=== PATIENT | female | born 1960 | race Caucasian/White ===

== ENCOUNTER 2021-06-27 19:34 | Emergency (ER) | payer OTHER, SELFPAY ==
[2021-06-27 19:35] VITALS: BP 125/73; PULSE 72; RESP 15; TEMP 36.1; O2SAT 98; BMI 28.3
--- NOTE | 2021-06-27 19:40 | RAD_ITS ---
STUDY: X-RAY - LEFT KNEE REASON FOR EXAM: Female, 60 years old. SAYS KNEE BENT BACKWARD, PAIN TECHNIQUE: 4 view(s) of the knee. COMPARISON: None. FINDINGS: Small oblique fracture seen in the head of the fibula with minimal displacement. Small cortical osteophytes seen at the periphery of the lateral patellar facet. Normal visualized distal femur. Normal visualized proximal tibia. Normal proximal tibiofibular articulation. Normal medial femorotibial compartment. Normal lateral femorotibial compartment. Normal patellofemoral articulation. The soft tissue structures are unremarkable. RAD/Knee 4 or More Views IMPRESSION: 1. Small oblique fracture seen in the head of the fibula with minimal displacement. Electronically Signed: Db Alvarado MD at 20:45 EDT , Service support ,
--- NOTE | 2021-06-27 20:36 | EDS_ITS ---
HPI History of Present Illness Chief Complaint: Lower Extremity Injury Informant: patient Narrative Narrative: Patient hurt her left knee. She was walking with her horse. It was pushing her a little bit. She caught her left foot on a root and fell down onto her knee. She has pain in the lateral aspect of the knee really overlying proximal fibula. She is able to bear weight. She never hit her head. No upper extremity injury. The only area of discomfort or complaint is the lateral left knee. Pressing makes a little bit worse nothing really makes it better other than rest. She is not on any anticoagulation. [facility] Medical History Anxiety Depression Home Medications bupropion HCl 100 mg PO DAILY 06/27/21 [History Last Taken Unknown] Allergy/AdvReac Type Severity Reaction Status Date / Time acetaminophen [From Vicodin] Allergy Other Verified 06/27/21 19:37 etodolac [From Lodine] Allergy Unknown Verified 06/27/21 19:37 hydrocodone [From Vicodin] Allergy Other Verified 06/27/21 19:37 Surgical History History of hysterectomy Social History Smoking Status: Never smoker ROS ROS ED Eyes Eyes: Denies blurry vision Cardiovascular Cardiovascular: Denies palpitations Gastrointestinal Gastrointestinal: Denies nausea or vomiting Musculoskeletal Musculoskeletal: Reports other Details: See history of present illness. ; Denies back pain or neck pain Integumentary Denies rash Neurologic Neurologic: Denies paresthesias or weakness Hematologic/Lymphatic Hematologic/Lymphatic: Denies easy bleeding or easy bruising EXAM Physical Exam Const Vital Signs: 06/27/21 19:35 Temperature 96.9 F L Temperature Source Temporal Pulse Rate 72 Respiratory Rate 15 Blood Pressure 125/73 H Blood Pressure Mean 90 Pulse Ox 98 Oxygen Delivery Method Room Air Positive well nourished and well developed General Appearance ED: well developed and NAD HEENT Reports moist mucous membranes Resp normal respiratory effort Extremity normal to inspection Extremity Narrative: Patient has no notable swelling. No effusion. She has reasonable range of motion. Knee is stable to inversion eversion and drawer. She does have some lateral proximal fibular tenderness but it is just mild. No crepitance. Neuro Sensorium / Orientation: alert Psych mental status grossly normal Skin Rashes: no rashes MDM MDM MDM Narrative Medical decision making narrative: I looked at the x-rays and so did radiology. There is a proximal small fibular fracture. This can be treated with ice rest Varghese wrap. If there is more swelling pain or new areas of pain or other concerns she should return. This should be followed up with x-ray to make sure it is healing. Radiography Diagnostic Testing: Radiology Impression Knee X-Ray 06/27/21 19:40 IMPRESSION: 1. Small oblique fracture seen in the head of the fibula with minimal displacement. Electronically Signed: Db Alvarado MD at 20:45 EDT , Service support , Discharge Plan Triage Chief Complaint: Lower Extremity Injury ED Provider: Tawanda Chang Dx/Rx/DC Orders Clinical Impression: Fracture of fibula, proximal Instructions: ED Fracture, Lower Extremity Prescriptions: No Action bupropion HCl 100 mg tablet sustained-release 12 hr 100 mg PO DAILY RF: 0 Primary Care Provider: Hermila Kerns Referrals: Hermila Kerns MD [Primary Care Provider] - 1-2 Weeks Disposition Disposition: Home, Self Care
== END 2021-06-27 22:36 | disposition home or self-care (01) ==
PROVIDERS: Emergency Provider Emergency Medicine; PCP Internal Medicine
DX: S82.402A Unspecified fracture of shaft of left fibula, initial encounter for closed fracture (principal); W19.XXXA Unspecified fall, initial encounter; F32.9 Major depressive disorder, single episode, unspecified; Y93.01 Activity, walking, marching and hiking; Z79.899 Other long term (current) drug therapy
CPT/HCPCS: 73564; 99282

== ENCOUNTER 2021-09-18 12:07 | Emergency (ER) | payer OTHER, SELFPAY ==
[2021-09-18 12:08] VITALS: BP 125/79; PULSE 68; RESP 18; TEMP 36.3; O2SAT 100; BMI 28.3
[2021-09-18] MEDS: Lidocaine 1% (20 ml mdv) 20 ML Vial INFILT (12:21)
--- NOTE | 2021-09-18 12:30 | EDS_ITS ---
HPI History of Present Illness Chief Complaint: Laceration Informant: patient Narrative Narrative: 61-year-old female presents to the emergency room with a left ring finger laceration. Patient was cutting food in the kitchen when she sustained a cut. Tetanus is up-to-date per her. Tetanus Immunization: 5-10 years [facility] Medical History Anxiety Depression Home Medications bupropion HCl 100 mg PO DAILY 06/27/21 [History Last Taken Unknown] Allergy/AdvReac Type Severity Reaction Status Date / Time acetaminophen [From Vicodin] Allergy Other Verified 09/18/21 12:09 etodolac [From Lodine] Allergy Unknown Verified 09/18/21 12:09 hydrocodone [From Vicodin] Allergy Other Verified 09/18/21 12:09 Surgical History History of hysterectomy Social History (Updated 09/18/21 @ 12:[address] Archie Bray DO) Smoking Status: Never smoker substance use type: does not use ROS ROS ED Constitutional Constitutional ED: Denies chills, fever(s) or weight loss Eyes Eyes: Denies change in vision or diplopia ENT ENT ED: Denies ear pain, rhinorrhea or sore throat Cardiovascular Cardiovascular: Denies chest pain, orthopnea, palpitations or racing heartbeat Respiratory/Chest Respiratory/Chest: Denies cough, dyspnea or orthopnea Gastrointestinal Gastrointestinal: Denies abdominal pain, diarrhea, nausea or vomiting Genitourinary Genitourinary ED: Denies dysuria, hematuria or urinary frequency Musculoskeletal Musculoskeletal: Denies arthralgias or myalgias Integumentary Reports other Details: See history of present illness ; Denies abscess or rash Neurologic Neurologic: Denies headache(s) or weakness Psychiatric Psychiatric: Denies anxiety, depression, suicidal ideation or suicidal thoughts Endocrine Endocrinology: Denies polydipsia, polyphagia or polyuria Allergic/Immunologic Allergic/Immunologic ED: Denies mouth swelling, tongue swelling or urticaria EXAM Physical Exam Const Vital Signs: 09/18/21 12:08 Temperature 97.3 F L Temperature Source Temporal Pulse Rate 68 Respiratory Rate 18 Blood Pressure 125/79 H Blood Pressure Mean 94 Pulse Ox 100 Oxygen Delivery Method Room Air Positive well nourished and well developed General Appearance ED: well developed HEENT Reports normocephalic, head/scalp atraumatic, TM's clear and moist mucous membranes atraumatic Tympanic Membrane ED: Yes TM's clear Eyes PERRL and EOMs intact bilaterally Neck no lymphadenopathy, supple and no JVD Resp normal respiratory effort and clear to auscultation bilaterally Cardio regular rate, regular rhythm and no murmurs Rate: regular rate GI normal to inspection, nondistended, normoactive bowel sounds and non-tender Palpation: soft Back/Spine no CVA tenderness and normal ROM Extremity full ROM General Extremety ED: Negative for edema General Extremity: Negative for edema Neuro oriented x3 and CN's II-XII intact bilaterally Sensorium / Orientation: alert Motor Exam: strength 5/5 throughout Psych mental status grossly normal Mood & Affect: Negative for depressed or tearful Skin no rashes or lesions noted Skin Narrative: There is a 1 cm linear laceration over the volar distal aspect of the left ring finger. Mild venous bleeding. It does extend into subcuta neous tissue. MDM MDM MDM Narrative Medical decision making narrative: Wound was locally anesthetized using 1% lidocaine (0.5 mL) was washed with Shur-Clens and explored. It was closed using a total of 2 simple erupted 4-0 Ethilon sutures. Dressed with bacitracin and Band-Aid. Stitches will be removed in 7 to 10 days return if worsening or concerns Discharge Plan Triage Chief Complaint: Laceration ED Provider: Archie Bray Dx/Rx/DC Orders Clinical Impression: Finger laceration Instructions: ED Laceration, Hand: All Closures Prescriptions: No Action bupropion HCl 100 mg tablet sustained-release 12 hr 100 mg PO DAILY RF: 0 Primary Care Provider: Hermila Kerns Referrals: Hermila Kerns MD [Primary Care Provider] - 7 Days for suture removal Disposition Disposition: Home, Self Care
== END 2021-09-18 12:38 | disposition home or self-care (01) ==
LOC: ED 12:30
PROVIDERS: Emergency Provider Emergency Medicine; PCP Internal Medicine
DX: S61.215A Laceration without foreign body of left ring finger without damage to nail, initial encounter (principal); W26.9XXA Contact with unspecified sharp object(s), initial encounter; Y93.G1 Activity, food preparation and clean up; Y92.9 Unspecified place or not applicable; Y99.9 Unspecified external cause status; F32.A Depression, unspecified; F41.9 Anxiety disorder, unspecified; Z79.899 Other long term (current) drug therapy
CPT/HCPCS: 12001; 99283

== ENCOUNTER 2025-01-13 09:36 | Emergency (ER) | payer MEDICARE, OTHER, SELFPAY ==
[2025-01-13] VITALS (9 sets, daily range): BP systolic 98–128; BP diastolic 61–78; PULSE 75–90; RESP 16–20; TEMP 36.1; O2SAT 95–99; BMI 29.2
--- NOTE | 2025-01-13 09:48 | ED.VIS.CHEST ---
HPI History of Present Illness Chief Complaint: Chest Pain [facility] Medical History Anxiety Depression Home Medications ?Medication ?Instructions ?Recorded ?Last Taken ?Type bupropion HCl 100 mg tablet,12 hr 100 mg PO DAILY 06/27/21 Unknown History sustained-release Allergy/AdvReac Type Severity Reaction Status Date / Time acetaminophen (From Vicodin) Allergy Other Verified 01/13/25 09:40 etodolac (From Lodine) Allergy Unknown Verified 01/13/25 09:40 hydrocodone (From Vicodin) Allergy Other Verified 01/13/25 09:40 Surgical History History of hysterectomy Social History (Updated 09/18/21 @ 12:[address] Archie Bray DO) Smoking Status: Never smoker substance use type: does not use EXAM Physical Exam Const Vital Signs: 01/13/25 09:37 01/13/25 10:03 01/13/25 10:24 Temperature 97.0 F L Temperature Source Temporal Pulse Rate 90 Respiratory Rate 16 Respiratory Effort Normal Blood Pressure 105/61 Blood Pressure Mean 75 Pulse Ox 97 95 Oxygen Delivery Method Room Air Room Air 01/13/25 10:37 01/13/25 11:00 01/13/25 12:00 Temperature Temperature Source Pulse Rate 79 78 79 Respiratory Rate 20 H 16 16 Respiratory Effort Blood Pressure 98/68 99/68 102/73 Blood Pressure Mean 78 78 82 Pulse Ox 97 96 98 Oxygen Delivery Method Room Air 01/13/25 13:00 01/13/25 14:00 01/13/25 15:00 Temperature Temperature Source Pulse Rate 78 75 87 Respiratory Rate 16 16 16 Respiratory Effort Blood Pressure 128/78 H 100/61 102/68 Blood Pressure Mean 94 74 79 Pulse Ox 98 98 98 Oxygen Delivery Method MDM MDM MDM Narrative Medical decision making narrative: HISTORY OF PRESENT ILLNESS: 64-year-old female presents with concern for chest heaviness. No she has not felt well for the last 6 days. Notes some transient chest discomfort this morning that has since resolved. Discomfort was not exertional. She further states she has had fatigue, body aches, chills. No sick contacts. No leg swelling. No bleeding diathesis noted. No vomiting or diarrhea noted but she does note upset stomach . Patient denies sudden onset of pain, no tearing sensation, no migratory symptoms, no new numbness, weakness or loss of sensation. Patient denies family history or personal history of Connective tissue disorders (Marfan's Syndrome, Brad Danlos etc) The patient denies recent surgery in the last 4 weeks or immobilization in the last 3 days, denies previous diagnosis of DVT or PE, hemoptysis, unilateral leg swelling or malignancy with treatment the last 6 months or palliative. No estrogen use noted. REVIEW OF SYSTEMS: Pertinent positives: Fever, chest heaviness Pertinent negatives: Syncope, shortness of breath PHYSICAL EXAM: Nursing triage notes reviewed, Vital signs reviewed Constitutional: please see mdm HENT: MMM Eyes: Pupils equal round and reactive to light, Extraocular muscles intact Neck: No stridor, no JVD, full neck ROM Lungs: Clear to auscultation, No wheezing or rales. No increased work of breathing, no conversational dyspnea, no accessory muscle use, no nasal flaring. No respiratory distress noted Heart: Regular rate and rhythm, No murmurs, No rubs and No gallops, 2+ distal pulses (radial, femoral, posterior tibial) in all extremities Abdomen: Soft, there is no tenderness, rigidity, rebound or guarding, no obvious peritoneal signs, no palpable pulsatile abdominal masses, no auscultated abdominal bruit : No CVAT Extremities: No edema Neuro: No new focal neurological deficits, cranial nerves II through XII intact, 5/5 strength in all present extremities. Intact sensation to light touch in all present extremities, 2+ reflexes bilateral patella tendons. Skin: No rash or lesions noted MEDICAL DECISION MAKING: Chief Complaint: As per HPI External records reviewed: Reviewed prior ED record Factors affecting care: none Social determinants of health: none History obtained from others: none Consults: Cardiology (Dr. Mcclendon) [facility] Narrative: The patient was initially hemodynamically stable, afebrile and nontoxic-appearing. Saturating 97% room air. No respiratory distress noted. Lungs are clear. No signs of significant distress. I considered the following differential diagnosis: Pneumonia, COVID, RSV, flu, ACS, arrhythmia I obtained a broad lab and imaging workup to further elucidate etiology the patient complaints. While I considered life-threatening etiologies including pulmonary embolism and aortic dissection the patient's history and physical exam not consistent with these etiologies and as such I did not pursue a D-dimer or CT scans of the chest/chest abdomen pelvis to further assess these potentiality's ALL IMAGES (IF OBTAINED) HAVE BEEN PERSONALLY REVIEWED AND INTERPRETED BY MYSELF. EKG with normal sinus rhythm rate 84, normal axis, normal intervals, no STEMI I have personally reviewed the patient's chest x-ray. Chest x-ray is unremarkable for pulmonary edema, pneumothorax, pneumonia or focal cardiopulmonary abnormality. CBC with no leukocytosis, noted mild anemia, no thrombocytopenia. BMP without evidence of significant electrolyte abnormalities, no anion gap, no acute kidney injury. Initial troponin indeterminate/negative will complete high-sensitivity troponin protocol. Clinical suspicion for ACS is low. I suspect the patient's symptoms are more likely related to a viral URI. She is chest pain-free. Has a nonischemic EKG. Has no risk factors for smoking or hypertension that make me more concerned about ACS. Discussed troponin values with the piping design specialist on-call. He noted if the change in the 4-hour troponin is less than 6 from a 2-hour troponin then the patient will be safe to be discharged. He is greater than 6 recommends admission. Delta troponin was acceptable 33-26-27. Appropriate for dc. Strict return precautions discussed. The patient and/or family, caregivers express understanding. The patient and/or family, caregivers agrees with the plan. Shared decision making: I will have a discussion with the patient and or visitors regarding risk/benefits of further testing or admission. They will be made aware of of the risk/benefits inherent in this decision they will be given the opportunity to voice understanding. Total critical care time today provided was at least 0 minutes. This excludes separately billable procedures. Critical care time (if documented) is secondary to the patient having high probability of clinically significant/life threatening deterioration in the patient's condition which required my urgent intervention. Impression: 1. Viral URI 2. Chest pain Dispo: Discharge This note was generated with [employer] dictation software. It may contain incorrect words, spelling, and punctuation that were not noted in review of the chart prior to signing. Lab Data Labs: Laboratory Results - last 24 hr 01/13/25 01/13/25 01/13/25 10:10 12:19 14:25 WBC 6.6 RBC 3.96 L Hgb 11.9 L Hct 35.0 L MCV 88.4 MCH 30.1 MCHC 34.0 RDW Std Deviation 43.1 RDW Coeff of Amanda 13.3 Plt Count 271 MPV 9.6 Immature Gran % (Auto) 0.500 Neut % (Auto) 77.0 H Lymph % (Auto) 9.7 L Mcminn % (Auto) 8.3 Eos % (Auto) 3.9 Baso % (Auto) 0.6 Absolute Neuts (auto) 5.1 Absolute Lymphs (auto) 0.64 L Nucleated RBC % 0 Sodium 137 Potassium 3.9 Chloride 103 Carbon Dioxide 22.6 Anion Gap 11 BUN 11 Creatinine 0.66 L Estim Creat Clear Calc 67.02 Est GFR (MDRD) Non-Af 97 BUN/Creatinine Ratio 16.6 Glucose 128 H Calcium 9.0 Troponin T High Sens 33 H Troponin T Hi Sens 2 Hr 26 H Troponin T Hi Sens 4Hr 27 H Radiography Diagnostic Testing: Clinical Impression(s) from Imaging Studies Chest X-Ray 01/13/25 10:05 IMPRESSION: 1. No visible acute cardiopulmonary findings 2. Additional description as above. Reading Location: [facility] Discharge Plan Triage Chief Complaint: Chest Pain ED Provider: Rakesh Parra Dx/Rx/DC Orders Instructions: ED URI, Viral, No Abx (Adult), Chest Pain [facility] Prescriptions: No Action bupropion HCl 100 mg tablet sustained-release 12 hr 100 mg PO DAILY Primary Care Provider: Hermila Kerns Referrals: Hermila Kerns MD [Primary Care Provider] - Activity Restrictions/Additional Instructions: Thank you for trusting us with your care today! Your labs images were reassuring. Specifically no sign of COVID, RSV, flu. No sign of bacterial pneumonia. I suspect you are send from a viral upper respiratory tract infection. The testing on your heart was negative for signs of damage. Please take Tylenol (2 pills, 650 mg), ibuprofen (2 pills, 400 mg) every 6 hours as needed for pain and fever control. Please return to the emergency department if your symptoms change or worsen. Please follow with your primary care physician for further outpatient evaluation and management. Specifically for repeat evaluation and possibly stress test. Print Language: Cook Islander Disposition Disposition: Home, Self Care
--- NOTE | 2025-01-13 09:57 | EKG12_ITS ---
Test Reason : Blood Pressure : */* mmHG Vent. Rate : 84 BPM Atrial Rate : 84 BPM P-R Int : 138 ms QRS Dur : 88 ms QT Int : 380 ms P-R-T Axes : 68 47 65 degrees QTcB Int : 449 ms Normal sinus rhythm Normal ECG Confirmed by GRACIA LIZ, ERMELINDA ([id number]), manager editorial KERRI PRYOR ([id number]) on 01/14/2025 8:00:24 AM Referred By: Confirmed By: EMRELINDA FAGAN MD
--- NOTE | 2025-01-13 10:05 | RAD_ITS ---
PROCEDURE: CHEST 1 VIEW (PORTABLE) (RADCXPA_P), 01/13/2025 REASON FOR EXAM: CHEST PAIN TECHNIQUE: A single portable AP view of the chest was obtained. COMPARISON: None FINDINGS: Heart: Unremarkable. Mediastinum: Unremarkable. Lungs/pleura: No focal consolidation. No sizeable pleural effusion or visible pneumothorax. Bones: Mild thoracic scoliosis. Lines and support devices: None. Other: None. RAD/Chest 1 View (Portable) IMPRESSION: 1. No visible acute cardiopulmonary findings 2. Additional description as above. Reading Location: [id number]
[2025-01-13] MEDS: Ondansetron 4 MG/2 ML Vial IV (10:12)
[2025-01-13] MEDS: 0.9% Normal Saline (1000mL) 1,000 ML 999 ML IV (10:12)
[2025-01-13 10:27] LABS: Absolute Lymphocyte Count 0.64 X10^3/uL (0.83-4.51); Absolute Neutrophil Count 5.1 X10^3/uL (2.0-7.7); Basophil# 0.04 X10^3/uL; Basophil% 0.6 % (0-1); Eosinophil# 0.26 X10^3/uL; Eosinophils% 3.9 % (0-5); Hemoglobin 11.9 g/dL (12.0-15.0); Lymphocyte # 0.64 X10^3/ul (0.83-4.51); Lymphocyte % 9.7 % (19-41); Mean Corpuscular Hgb 30.1 pg (27.0-32.0); Mean Corpuscular Volume 88.4 fL (81-99); Mean Platelet Vol. 9.6 fl (6.2-12.0); Monocyte# 0.55 X10^3/uL; Monocyte% 8.3 % (0-10); NRBC Flagged by Analyzer 0 % (0-5); Neutrophil # 5.11 X10^3/uL (2.7-7.7); Platelet Count 271 K/mm3 (150-450); RBC Distribution Width CV 13.3 % (11.6-14.6); RBC Distribution Width SD 43.1 fl (35.1-43.9); Red Blood Count 3.96 M/mm3 (4.2-5.4); White Blood Count 6.6 K/mm3 (4.4-11.0)
[2025-01-13 10:52] LABS: Anion Gap 11 (5-15); BUN 11 mg/dL (4-19); BUN/Creat Ratio 16.6 RATIO (10-20); Carbon Dioxide 22.6 mmol/L (21.0-32.0); Chloride 103 mmol/L (98-108); Creatinine, Serum 0.66 mg/dL (0.70-1.20); EST Glomerular Filtration Rate 97 (>60); Estimated Creatinine Clearance 67.02 ml/min (50-250); Glucose 128 mg/dL (70-99); Potassium 3.9 mmol/L (3.3-5.1); Sodium Level 137 mmol/L (133-145); Troponin T High Sensitivity 33 ng/L (<=14)
[2025-01-13 13:22] LABS: Troponin T High Sens 2 HR 26 ng/L (<=14)
[2025-01-13 15:01] LABS: Troponin T High Sens 4 HR 27 ng/L (<=14)
== END 2025-01-13 15:30 | disposition home or self-care (01) ==
PROVIDERS: Emergency Provider Emergency Medicine; PCP Internal Medicine; Visit Provider Emergency Medicine
DX: R07.9 Chest pain, unspecified (principal); J06.9 Acute upper respiratory infection, unspecified; Z90.710 Acquired absence of both cervix and uterus; F41.9 Anxiety disorder, unspecified; F32.A Depression, unspecified; Z79.899 Other long term (current) drug therapy
CPT/HCPCS: 71045; 80048; 84484; 85025; 87631; 93005; 96361; 96374; 99284; A4216; J2405

== ENCOUNTER 2025-03-14 09:41 | Inpatient (IN) | payer MEDICARE, OTHER, SELFPAY ==
[2025-03-14 09:42] VITALS: BP 111/60; PULSE 73; RESP 16; TEMP 36.6; O2SAT 99; BMI 29.2
--- NOTE | 2025-03-14 10:06 | ED.VIS.GI ---
HPI HPI - GI History of Present Illness Chief Complaint: Abd Pain Informant: patient and spouse/S.O. Narrative Narrative: 64-year-old female presenting to the emergency room with a chief complaint of abdominal pain. Patient states that Friday night she had some discomfort mostly right upper quadrant but also diffusely in the abdomen. It went away and started she felt pretty good. Yesterday she went to a birthday republic[employer] in the afternoon she ate some salad and peanut butter crackers for dinner between [id number] hours. She states that around 0330 hrs. in the morning she awoke with pain in her abdomen. She describes it as mostly right upper quadrant but also diffusely and cramping. She had some oatmeal this morning around 0800 hrs. Patient states she has a known gallstone which was seen on either an ultrasound or CAT scan earlier this year which she states was performed here but I do not have that in the medical record. The patient states that she has not had any vomiting or nausea. No known pancreatic issues. She notes some intermittent constipation which is normal for her but had normal bowel movement this morning. Recently she has started to avoid eating several hours before bed. [facility] Medical History Anxiety Depression Home Medications ?Medication ?Instructions ?Recorded ?Last Taken ?Type acetaminophen 500 mg capsule 1,000 mg PO Q6H PRN fever or pain 03/14/25 03/14/25 History ascorbate calcium-bioflavonoid 1 tab PO DAILY 03/14/25 Unknown History 1,000 mg-200 mg tablet (Rosalee-C with Bioflavonoids) chromium amino acid chelate 400 400 mcg PO DAILY 03/14/25 03/13/25 History mcg tablet coenzyme Q10 100 mg capsule (Co 100 mg PO DAILY 03/14/25 03/13/25 History Q-10) estradiol 0.01% (0.1 mg/gram) 1 g vaginal .COMPLEX 03/14/25 03/12/25 History vaginal cream evening primrose oil-linoleic 1 cap PO DAILY 03/14/25 03/13/25 History acid-gamolenic acid 1,000 mg capsule ([place] Oil) ginkgo biloba leaf extract 120 1 tab PO DAILY 03/14/25 03/13/25 History mg-choline bitartrate 110 mg tablet ([facility] Memory Support) krill oil 500 mg capsule 500 mg PO DAILY 03/14/25 03/13/25 History turmeric 400 mg capsule 400 mg PO DAILY 03/14/25 03/13/25 History vit A 600 mcg-vit D3 50 mcg-vit E 1 cap PO DAILY 03/14/25 Unknown History 101 mg-vit K1 1,000 mcg capsule Allergy/AdvReac Type Severity Reaction Status Date / Time acetaminophen (From Vicodin) Allergy Other Verified 03/14/25 09:41 etodolac (From Lodine) Allergy Unknown Verified 03/14/25 09:41 hydrocodone (From Vicodin) Allergy Other Verified 03/14/25 09:41 Surgical History History of hysterectomy Social History Smoking Status: Never smoker substance use type: does not use ROS ROS ED Constitutional Constitutional ED: Denies chills, fever(s) or weight loss Eyes Eyes: Denies change in vision or diplopia ENT ENT ED: Denies ear pain, rhinorrhea or sore throat Cardiovascular Cardiovascular: Denies chest pain, orthopnea, palpitations or racing heartbeat Respiratory/Chest Respiratory/Chest: Denies cough, dyspnea or orthopnea Gastrointestinal Gastrointestinal: Reports abdominal pain and constipation; Denies diarrhea, nausea or vomiting Genitourinary Genitourinary ED: Denies dysuria, hematuria or urinary frequency Musculoskeletal Musculoskeletal: Denies arthralgias or myalgias Integumentary Denies abscess or rash Neurologic Neurologic: Denies headache(s) or weakness Psychiatric Psychiatric: Denies anxiety, depression, suicidal ideation or suicidal thoughts Endocrine Endocrinology: Denies polydipsia, polyphagia or polyuria Allergic/Immunologic Allergic/Immunologic ED: Denies mouth swelling, tongue swelling or urticaria EXAM Physical Exam Const Vital Signs: 03/14/25 09:42 03/14/25 11:41 03/14/25 12:34 Temperature 97.9 F 98 F Temperature Source Oral Pulse Rate 73 80 80 Respiratory Rate 16 20 H Blood Pressure 111/60 132/78 H 132/78 H Blood Pressure Mean 77 96 96 Pulse Ox 99 96 96 Oxygen Delivery Method Room Air Positive well nourished and well developed General Appearance ED: well developed HEENT Reports normocephalic, head/scalp atraumatic and moist mucous membranes Eyes PERRL and EOMs intact bilaterally Neck no lymphadenopathy, supple and no JVD Resp normal respiratory effort and clear to auscultation bilaterally Cardio regular rate, regular rhythm and no murmurs GI GI Narrative: Mild tenderness to palpation in the lateral right upper quadrant. There is no involuntary guarding or rebound tenderness. There is normal bowel sounds. Palpation: soft Back/Spine no CVA tenderness and normal ROM Extremity normal to inspection General Extremety ED: Negative for edema General Extremity: Negative for edema Neuro oriented x3 and CN's II-XII intact bilaterally Sensorium / Orientation: alert Motor Exam: strength 5/5 throughout Psych mental status grossly normal Mood & Affect: Negative for depressed or tearful Skin no rashes or lesions noted and no wounds MDM MDM MDM Narrative Medical decision making narrative: Differential diagnosis includes but not limited to acute cholecystitis choledocholithiasis pancreatitis UTI kidney stone hepatic dysfunction renal dysfunction Basic blood work shows a white count of 2.6 hemoglobin 12.8 platelet count is 216 creatinine 0.62. Total bilirubin 0.69 direct bilirubin is 0.44 AST of 856 ALT of 547 alk phos 106 lipase of 96. Urinalysis with 5-10 squamous cells but no overt infection. CT of the pelvis was obtained read by radiology reviewed by myself. Ultrasound of the gallbladder was also obtained. Please see radiologist read for full details. Both of these results and the patient's presentation and labs were discussed with on-call surgeon Dr. Cabrera. He has come to the emergency department to evaluate the patient. Plan of care is admission to the hospital for further evaluation. History & Record Review Discussion w/independent historian: Patient and Family Additional record(s) reviewed:: Prior ED visit and Prior labs Lab Data Attestation: I reviewed the patient's lab results. Labs: Laboratory Results - last 24 hr 03/14/25 03/14/25 10:17 10:42 WBC 2.6 L RBC 4.23 Hgb 12.8 Hct 37.6 MCV 88.9 MCH 30.3 MCHC 34.0 RDW Std Deviation 44.0 H RDW Coeff of Amanda 13.6 Plt Count 216 MPV 9.5 Immature Gran % (Auto) 0.000 Neut % (Auto) 63.2 Lymph % (Auto) 24.7 [place] % (Auto) 9.5 Eos % (Auto) 1.1 Baso % (Auto) 1.5 H Absolute Neuts (auto) 1.7 L Absolute Lymphs (auto) 0.65 L Nucleated RBC % 0 Sodium 139 Potassium 4.5 Chloride 108 Carbon Dioxide 21.7 Anion Gap 9 BUN 16 Creatinine 0.62 L Estim Creat Clear Calc 67.02 Est GFR (MDRD) Non-Af 98 BUN/Creatinine Ratio 26.1 H Glucose 116 H Calcium 9.4 Total Bilirubin 0.69 Direct Bilirubin 0.44 H AST 856 H ALT 547 H Alkaline Phosphatase 106 H Total Protein 7.1 Albumin 4.3 Globulin 2.8 Lipase 96 H Urine Color Yellow Urine Clarity Clear Urine pH 7.0 Ur Specific [place] 1.010 Urine Protein 15 H Urine Glucose (UA) Normal Urine Ketones Negative Urine Occult Blood Negative Urine Nitrite Negative Urine Bilirubin Negative Urine Urobilinogen 1 H Ur Leukocyte Esterase Negative Urine RBC 0 SEEN Urine WBC 0 SEEN Ur Squamous Epith Cells 5-10 SEEN Urine Bacteria 0 SEEN Urine Mucus 0 SEEN Radiography Diagnostic Testing: Clinical Impression(s) from Imaging Studies Abdomen/Pelvis CT 03/14/25 10:35 IMPRESSION: Cholelithiasis. Mildly distended gallbladder and findings suggestive of thickened gallbladder wall. Correlation with ultrasound recommended. Sigmoid diverticulosis. Fatty infiltration of the liver. [facility] 03/14/25 11:03 IMPRESSION: 1. Cholelithiasis, mild gallbladder distention, mild gallbladder wall thickening and positive sonographic Butterfield's sign consistent with age-indeterminate cholecystitis with suspicion of acute cholecystitis. HIDA scan can be considered as warranted. 2. Nonspecific borderline biliary ductal dilatation with proximal common bile duct diameter of 0.41 cm and distal common bile duct diameter of 0.82 cm. No choledocholithiasis seen, MRCP can be considered as warranted. 3. 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 Cabrera) Discharge Plan Dx/Rx/DC Orders Clinical Impression: Abdominal pain, Cholelithiasis, Elevated liver enzymes Disposition Disposition: Acute Care Hospital [facility]
[2025-03-14 10:23] LABS: Absolute Lymphocyte Count 0.65 X10^3/uL (0.83-4.51); Absolute Neutrophil Count 1.7 X10^3/uL (2.0-7.7); Basophil# 0.04 X10^3/uL; Basophil% 1.5 % (0-1); Eosinophil# 0.03 X10^3/uL; Eosinophils% 1.1 % (0-5); Hematocrit 37.6 % (37-47); Hemoglobin 12.8 g/dL (12.0-15.0); Lymphocyte # 0.65 X10^3/ul (0.83-4.51); Lymphocyte % 24.7 % (19-41); Mean Corpuscular Hgb 30.3 pg (27.0-32.0); Mean Corpuscular Volume 88.9 fL (81-99); Mean Platelet Vol. 9.5 fl (6.2-12.0); Monocyte# 0.25 X10^3/uL; Monocyte% 9.5 % (0-10); NRBC Flagged by Analyzer 0 % (0-5); Neutrophil # 1.66 X10^3/uL (2.7-7.7); Neutrophil % 63.2 % (47-70); Platelet Count 216 K/mm3 (150-450); RBC Distribution Width CV 13.6 % (11.6-14.6); Red Blood Count 4.23 M/mm3 (4.2-5.4); White Blood Count 2.6 K/mm3 (4.4-11.0)
--- NOTE | 2025-03-14 10:35 | CT_ITS ---
PROCEDURE: ABDOMEN/PELVIS W IV CONT ONLY 03/14/2025 REASON FOR EXAM: ABDOMINAL PAIN TECHNIQUE: Abdomen and pelvis CT with intravenous contrast. Coronal and Sagittal reconstruction series were provided. PATIENT PREPARATION: Per protocol ORAL CONTRAST TYPE: None. CONTRAST: Isovue-300 VOLUME: 100 mL One or more dose reduction techniques were used (e.g., Automated exposure control, adjustment of the mA and/or kV according to patient size, use of iterative reconstruction technique. RADIATION DOSE SUMMARY: CTDlvol: 14.2 mGy DLP: 806.78 mGycm COMPARISON: None FINDINGS: Lung bases: Mild dependent atelectasis Liver: Diffuse fatty infiltration. Tiny cyst in the anterior aspect of the lateral segment of the left lobe of the liver. Gallbladder: Several calcified gallstones. Distention of the gallbladder. Minimal thickening of the gallbladder wall. Correlation with ultrasound recommended. Spleen: Normal size. Pancreas: Normal size without evidence of mass surrounding inflammation or ductal dilation. Adrenals: Unremarkable Kidneys: Normal renal sizes. No hydronephrosis. Bladder: Unremarkable Reproductive Organs: Normal uterine size and contour. Ovaries are unremarkable. Bowel: Colonic diverticulosis without diverticulitis. Appendix: Unremarkable Lymph nodes: None Vasculature: The abdominal aorta and IVC are normal. Peritoneum / Retroperitoneum: Unremarkable Bones: Mild degenerative changes of the spine. CT/Abdomen/Pelvis W IV Cont ONLY IMPRESSION: Cholelithiasis. Mildly distended gallbladder and findings suggestive of thicke cristal gallbladder wall. Correlation with ultrasound recommended. Sigmoid diverticulosis. Fatty infiltration of the liver. Reading Location: [place] [id number]
[2025-03-14 10:43] LABS: Lipase 96 U/L (13-75)
[2025-03-14 10:53] LABS: Bacteria 0 SEEN /hpf (None Seen); Mucous, Urine 0 SEEN /hpf (<or=2+); Red Blood Cells-Urine 0 SEEN /hpf (0-5); White Blood Cells 0 SEEN /hpf (0-5)
[2025-03-14 10:54] LABS: Color, Urine Yellow (Yellow); Glucose, Dipstick Normal (Normal); Ketone-Dipstick Negative (Negative); Leukocyte Esterase-Dipstick Negative /ul (Negative); Nitrite-Dipstick Negative (Negative); Occult Blood-Urine Negative /ul (Negative); Protein-Dipstick 15 mg/dl (Negative); Urine Bilirubin Dipstick Negative (Negative); Urine Clarity Clear (Clear); Urine Urobilinogen 1 mg/dl (Normal)
[2025-03-14 11:00] LABS: AST(SGOT) 856 U/L (<=31); Alanine Aminotransfer ALT/SGPT 547 U/L (<=34); Albumin, Serum 4.3 g/dL (3.4-4.8); Alkaline Phosphatase 106 U/L (35-104); Anion Gap 9 (5-15); BUN 16 mg/dL (4-19); BUN/Creat Ratio 26.1 RATIO (10-20); Bilirubin, Direct 0.44 mg/dL (0.00-0.30); Calcium,Total 9.4 mg/dL (7.6-11.0); Carbon Dioxide 21.7 mmol/L (21.0-32.0); Chloride 108 mmol/L (98-108); Creatinine, Serum 0.62 mg/dL (0.70-1.20); EST Glomerular Filtration Rate 98 (>60); Estimated Creatinine Clearance 67.02 ml/min (50-250); Globulin 2.8 g/dL (2.2-4.2); Glucose 116 mg/dL (70-99); Potassium 4.5 mmol/L (3.3-5.1); Protein, Total 7.1 g/dL (5.9-8.4); Sodium Level 139 mmol/L (133-145); Total Bilirubin 0.69 mg/dL (0.00-1.30)
--- NOTE | 2025-03-14 11:03 | US_ITS ---
PROCEDURE: ABDOMEN LIMITED 03/14/2025 Ultrasound abdomen limited with Rright upper quadrant abdominal ultrasound performed with grayscale and color flow imaging. REASON FOR EXAM: CHOLELITHIASIS PAIN CHOLELITHIASIS PAIN. Abdominal pain. Gallstones. COMPARISON: CT abdomen March 14, 2025 FINDINGS: Liver: Liver is of mildly increased echogenicity diffusely suggestive of diffuse fatty infiltration of the liver. Liver within normal limits for size measuring 16 cm. Gallbladder: Gallbladder is mildly distended with diameter of 4.0 cm. Shadowing gallstones present within the gallbladder lumen. Mild gallbladder wall thickening to a thickness of 0.38 cm. No pericholecystic fluid seen. Positive sonographic Butterfield's sign (technologist reports patient reported pain while imaging over the gallbladder.) Common bile duct: Borderline biliary ductal dilatation with superior common bile duct diameter of 0.41 cm and inferior/distal common bile duct diameter of 0.82 cm. No choledocholithiasis seen, MRCP is more sensitive for detection of choledocholithiasis.. Pancreas: Pancreas appears normal. Right kidney: Right kidney appears normal with no hydronephrosis. Other: No fluid collection US/Abdomen Limited IMPRESSION: 1. Cholelithiasis, mild gallbladder distention, mild gallbladder wall thickeni ng and positive sonographic Butterfield's sign consistent with age-indeterminate cholecystitis with suspicion of acute cholecy stitis. HIDA scan can be considered as warranted. 2. Nonspecific borderline biliary ductal dilatation with proximal common bile duct diameter of 0.41 cm and distal common bile duct diameter of 0.82 cm. No choledocholithiasis seen, MRCP can be considered as warranted. 3. Mild suspected diffuse fatty infiltration of the liver Reading Location: [facility]
[2025-03-14 11:06] LABS: Squamous Epithelial Cells - UA 5-10 SEEN /hpf (5-10)
[2025-03-14 11:41] VITALS: BP 132/78; PULSE 80; O2SAT 96
[2025-03-14 12:34] VITALS: BP 132/78; PULSE 80; RESP 20; TEMP 36.6; O2SAT 96
--- NOTE | 2025-03-14 13:00 | NM_ITS ---
PROCEDURE: HEPATOBILIARY IMAGING 03/14/2025 REASON FOR EXAM: 64-year-old female, right upper quadrant pain, cholelithiasis, gallbladder distention and wall thickening on same-day ultrasound. TECHNIQUE: Intravenous Choletec with planar imaging of the abdomen. RADIOPHARMACEUTICAL: 6 mCi Mebrofenin COMPARISON: Same-day right upper quadrant ultrasound, same day CT abdomen pelvis. FINDINGS: There is good uptake of the radiopharmaceutical by the liver. Normal gallbladder visualization with the gallbladder identified by 30 minutes. Reading Location: [id number]
--- NOTE | 2025-03-14 13:04 | PCM.HP.STD ---
HPI - General HPI Narrative ELLI GARCIA, is a 64 F who presents with abdominal pain. She reports that 3 days ago she had cramping throughout her abdomen and then it disappeared. It came back today and is more concentrated in the right upper quadrant. She denies nausea or vomiting or fevers or chills. Currently she is not feeling much pain. [facility] Medical History Anxiety Depression Home Medications ?Medication ?Instructions ?Recorded ?Last Taken ?Type acetaminophen 500 mg capsule 1,000 mg PO Q6H PRN fever or pain 03/14/25 03/14/25 History ascorbate calcium-bioflavonoid 1 tab PO DAILY 03/14/25 Unknown History 1,000 mg-200 mg tablet (Rosalee-C with Bioflavonoids) chromium amino acid chelate 400 400 mcg PO DAILY 03/14/25 03/13/25 History mcg tablet coenzyme Q10 100 mg capsule (Co 100 mg PO DAILY 03/14/25 03/13/25 History Q-10) estradiol 0.01% (0.1 mg/gram) 1 g vaginal .COMPLEX 03/14/25 03/12/25 History vaginal cream evening primrose oil-linoleic 1 cap PO DAILY 03/14/25 03/13/25 History acid-gamolenic acid 1,000 mg capsule ([place] Oil) ginkgo biloba leaf extract 120 1 tab PO DAILY 03/14/25 03/13/25 History mg-choline bitartrate 110 mg tablet ([facility]) krill oil 500 mg capsule 500 mg PO DAILY 03/14/25 03/13/25 History turmeric 400 mg capsule 400 mg PO DAILY 03/14/25 03/13/25 History vit A 600 mcg-vit D3 50 mcg-vit E 1 cap PO DAILY 03/14/25 Unknown History 101 mg-vit K1 1,000 mcg capsule Allergy/AdvReac Type Severity Reaction Status Date / Time acetaminophen (From Vicodin) Allergy Other Verified 03/14/25 09:41 etodolac (From Lodine) Allergy Unknown Verified 03/14/25 09:41 hydrocodone (From Vicodin) Allergy Other Verified 03/14/25 09:41 Surgical History History of hysterectomy Social History Smoking Status: Never smoker substance use type: does not use ROS Constitutional Constitutional: Denies anorexia, chills or fatigue Eyes Eyes: Denies blurry vision ENT HEENT: Denies abnormal hearing Cardiovascular Cardiovascular: Denies chest pain Respiratory/Chest Respiratory/Chest: Denies cough or dyspnea Gastrointestinal Gastrointestinal: Reports abdominal pain; Denies nausea, rectal bleeding or vomiting Genitourinary Genitourinary: Denies change in urinary stream Musculoskeletal Musculoskeletal: Denies abnormal gait Integumentary Integumentary: Denies jaundice Neurologic Neurologic: Denies abnormal gait Psychiatric Psychiatric: Denies anxiety or depression Endocrine Endocrinology: Denies flushing Hematologic/Lymphatic Hematologic/Lymphatic: Denies easy bleeding Vital Signs Vital Signs Vital Signs: 03/14/25 09:42 03/14/25 11:41 03/14/25 12:34 Temperature 97.9 F 98 F Temperature Source Oral Pulse Rate 73 80 80 Respiratory Rate 16 20 H Blood Pressure 111/60 132/78 H 132/78 H Blood Pressure Mean 77 96 96 Pulse Ox 99 96 96 Oxygen Delivery Method Room Air Weight Weight: 165 lb Body Mass Index (BMI) 29.2 Physical Exam Const oriented x3 and no apparent distress Resp normal respiratory effort GI soft to palpation Palpation: tender RUQ Results Lab / Micro Data 03/14/25 10:17 03/14/25 10:17 Labs: Laboratory Results - last 24 hr 03/14/25 10:17: WBC 2.6 L, RBC 4.23, Hgb 12.8, Hct 37.6, MCV 88.9, MCH 30.3, MCHC 34.0, RDW Std Deviation 44.0 H, RDW Coeff of Amanda 13.6, Plt Count 216, MPV 9.5, Immature Gran % (Auto) 0.000, Neut % (Auto) 63.2, Lymph % (Auto) 24.7, [place] % (Auto) 9.5, Eos % (Auto) 1.1, Baso % (Auto) 1.5 H, Absolute Neuts (auto) 1.7 L, Absolute Lymphs (auto) 0.65 L, Nucleated RBC % 0, Sodium 139, Potassium 4.5, Chloride 108, Carbon Dioxide 21.7, Anion Gap 9, BUN 16, Creatinine 0.62 L, Estim Creat Clear Calc 67.02, Est GFR (MDRD) Non-Af 98, BUN/Creatinine Ratio 26.1 H, Glucose 116 H, Calcium 9.4, Total Bilirubin 0.69, Direct Bilirubin 0.44 H, AST 856 H, ALT 547 H, Alkaline Phosphatase 106 H, Total Protein 7.1, Albumin 4.3, Globulin 2.8, Lipase 96 H 03/14/25 10:42: Urine Color Yellow, Urine Clarity Clear, Urine pH 7.0, Ur Specific [place] 1.010, Urine Protein 15 H, Urine Glucose (UA) Normal, Urine Ketones Negative, Urine Occult Blood Negative, Urine Nitrite Negative, Urine Bilirubin Negative, Urine Urobilinogen 1 H, Ur Leukocyte Esterase Negative, Urine RBC 0 SEEN, Urine WBC 0 SEEN, Ur Squamous Epith Cells 5-10 SEEN, Urine Bacteria 0 SEEN, Urine Mucus 0 SEEN Imaging Radiology Impression Abdomen/Pelvis CT 03/14/25 10:35 IMPRESSION: Cholelithiasis. Mildly distended gallbladder and findings suggestive of thickened gallbladder wall. Correlation with ultrasound recommended. Sigmoid diverticulosis. Fatty infiltration of the liver. Reading Location: [facility] Abdomen Ultrasound 03/14/25 11:03 IMPRESSION: 1. Cholelithiasis, mild gallbladder distention, mild gallbladder wall thickening and positive sonographic Butterfield's sign consistent with age-indeterminate cholecystitis with suspicion of acute cholecystitis. HIDA scan can be considered as warranted. 2. Nonspecific borderline biliary ductal dilatation with proximal common bile duct diameter of 0.41 cm and distal common bile duct diameter of 0.82 cm. No choledocholithiasis seen, MRCP can be considered as warranted. 3. Mild suspected diffuse fatty infiltration of the liver Reading Location: [facility] Assessment & Plan Assessment/Plan (1) Elevated liver enzymes: (2) Cholelithiasis: PLAN: Plan Patient presented with abdominal pain which was worse in the right upper quadrant. She had a CT scan which showed a large calcified gallstone and some possible thickening of the gallbladder wall. She had ultrasound which showed cholelithiasis as well as mild thickening of the gallbladder wall. Her liver enzymes are elevated will as well but only the AST and ALT. It is a very odd pattern to be elevated and suggest liver etiology. I would like to admit the patient for observation and order a HIDA to see if this is gallbladder related or if this is due to the liver. If the HIDA does not show filling of the gallbladder I will add her on tomorrow for laparoscopic cholecystectomy. Repeat labs in the morning. Tony Cabrera MD Pager: [facility] [address] [place] [address] [address] [place] [address] Office:
--- NOTE | 2025-03-14 13:38 | ED.RN ---
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
[2025-03-14 15:40] VITALS: BP 128/78; PULSE 78; RESP 18; O2SAT 98
[2025-03-14] MEDS: 0.9% Normal Saline (1000mL) 1,000 ML 100 ML IV (16:29)
[2025-03-14 16:31] VITALS: BP 119/74; PULSE 60; RESP 16; TEMP 36.7; O2SAT 100
[2025-03-14 16:44] VITALS: BMI 29.6
[2025-03-14] MEDS: Piperacil/Tazobactam 3.375 GM in 0.9% Normal Saline (50mL MB+) 50 ML IV ×2 (17:12→22:20)
[2025-03-14 20:38] VITALS: BP 118/82; PULSE 57; RESP 16; TEMP 36.6; O2SAT 98
[2025-03-15] MEDS: 0.9% Normal Saline (1000mL) 1,000 ML 100 ML IV ×3 (02:50→22:51)
[2025-03-15 02:51] VITALS: BP 105/69; PULSE 57; RESP 16; TEMP 36.4; O2SAT 96
[2025-03-15 04:48] LABS: Absolute Lymphocyte Count 0.82 X10^3/uL (0.83-4.51); Absolute Neutrophil Count 1.5 X10^3/uL (2.0-7.7); Basophil# 0.06 X10^3/uL; Basophil% 2.2 % (0-1); Eosinophil# 0.12 X10^3/uL; Eosinophils% 4.5 % (0-5); Hematocrit 36.3 % (37-47); Hemoglobin 12.2 g/dL (12.0-15.0); Lymphocyte # 0.82 X10^3/ul (0.83-4.51); Lymphocyte % 30.7 % (19-41); Mean Corp Hgb Conc 33.6 g/dL (32-36); Mean Corpuscular Volume 89.2 fL (81-99); Mean Platelet Vol. 9.4 fl (6.2-12.0); Monocyte# 0.22 X10^3/uL; Monocyte% 8.2 % (0-10); NRBC Flagged by Analyzer 0 % (0-5); Neutrophil # 1.45 X10^3/uL (2.7-7.7); Neutrophil % 54.4 % (47-70); Platelet Count 212 K/mm3 (150-450); RBC Distribution Width CV 13.9 % (11.6-14.6); RBC Distribution Width SD 45.5 fl (35.1-43.9); Red Blood Count 4.07 M/mm3 (4.2-5.4); White Blood Count 2.7 K/mm3 (4.4-11.0)
[2025-03-15 05:09] LABS: ALB/GLOB Ratio 1.6 RATIO (0.9-2.4); AST(SGOT) 462 U/L (<=31); Alanine Aminotransfer ALT/SGPT 632 U/L (<=34); Albumin, Serum 3.8 g/dL (3.4-4.8); Alkaline Phosphatase 111 U/L (35-104); Anion Gap 10 (5-15); BUN 14 mg/dL (4-19); BUN/Creat Ratio 19.5 RATIO (10-20); Calcium,Total 8.7 mg/dL (7.6-11.0); Carbon Dioxide 20.6 mmol/L (21.0-32.0); Chloride 110 mmol/L (98-108); EST Glomerular Filtration Rate 95 (>60); Estimated Creatinine Clearance 65.95 ml/min (50-250); Globulin 2.3 g/dL (2.2-4.2); Glucose 86 mg/dL (70-99); Lipase 51 U/L (13-75); Potassium 4.1 mmol/L (3.3-5.1); Protein, Total 6.1 g/dL (5.9-8.4); Sodium Level 141 mmol/L (133-145); Total Bilirubin 0.67 mg/dL (0.00-1.30)
[2025-03-15] MEDS: Piperacil/Tazobactam 3.375 GM in 0.9% Normal Saline (50mL MB+) 50 ML IV ×3 (05:29→21:47)
--- NOTE | 2025-03-15 07:29 | PCM.PN.SRG ---
Subjective Subjective Patient is not having any pain today but she reports her urine is still bright yellow Objective Data Objective Data Vital Signs: Vital Signs Temp Pulse Resp BP Pulse Ox O2 Del Method 97.6 F L 57 L 16 105/69 96 Room Air 03/15/25 02:51 03/15/25 02:51 03/15/25 02:51 03/15/25 02:51 03/15/25 02:51 03/15/25 02:51 Oxygen Delivery Method Room Air Weight: 167 lb 3.2 oz Body Mass Index (BMI) 29.6 Intake & Output: Intake and Output for Last 24 Hours 03/13/25 03/14/25 03/15/25 23:59 23:59 23:59 Intake Total 50 1050 / 1050 Balance 1050 / 1050 Lab / Micro Data 03/15/25 04:37 03/15/25 04:37 Labs: Laboratory Results - last 24 hr 03/14/25 10:17: WBC 2.6 L, RBC 4.23, Hgb 12.8, Hct 37.6, MCV 88.9, MCH 30.3, MCHC 34.0, RDW Std Deviation 44.0 H, RDW Coeff of Amanda 13.6, Plt Count 216, MPV 9.5, Immature Gran % (Auto) 0.000, Neut % (Auto) 63.2, Lymph % (Auto) 24.7, [place] % (Auto) 9.5, Eos % (Auto) 1.1, Baso % (Auto) 1.5 H, Absolute Neuts (auto) 1.7 L, Absolute Lymphs (auto) 0.65 L, Nucleated RBC % 0, Sodium 139, Potassium 4.5, Chloride 108, Carbon Dioxide 21.7, Anion Gap 9, BUN 16, Creatinine 0.62 L, Estim Creat Clear Calc 67.02, Est GFR (MDRD) Non-Af 98, BUN/Creatinine Ratio 26.1 H, Glucose 116 H, Calcium 9.4, Total Bilirubin 0.69, Direct Bilirubin 0.44 H, AST 856 H, ALT 547 H, Alkaline Phosphatase 106 H, Total Protein 7.1, Albumin 4.3, Globulin 2.8, Lipase 96 H 03/14/25 10:42: Urine Color Yellow, Urine Clarity Clear, Urine pH 7.0, Ur Specific [place] 1.010, Urine Protein 15 H, Urine Glucose (UA) Normal, Urine Ketones Negative, Urine Occult Blood Negative, Urine Nitrite Negative, Urine Bilirubin Negative, Urine Urobilinogen 1 H, Ur Leukocyte Esterase Negative, Urine RBC 0 SEEN, Urine WBC 0 SEEN, Ur Squamous Epith Cells 5-10 SEEN, Urine Bacteria 0 SEEN, Urine Mucus 0 SEEN 03/15/25 04:37: WBC 2.7 L, RBC 4.07 L, Hgb 12.2, Hct 36.3 L, MCV 89.2, MCH 30.0, MCHC 33.6, RDW Std Deviation 45.5 H, RDW Coeff of Amanda 13.9, Plt Count 212, MPV 9.4, Immature Gran % (Auto) 0.000, Neut % (Auto) 54.4, Lymph % (Auto) 30.7, [place] % (Auto) 8.2, Eos % (Auto) 4.5, Baso % (Auto) 2.2 H, Absolute Neuts (auto) 1.5 L, Absolute Lymphs (auto) 0.82 L, Nucleated RBC % 0, Sodium 141, Potassium 4.1, Chloride 110 H, Carbon Dioxide 20.6 L, Anion Gap 10, BUN 14, Creatinine 0.70, Estim Creat Clear Calc 65.95, Est GFR (MDRD) Non-Af 95, BUN/Creatinine Ratio 19.5, Glucose 86, Calcium 8.7, Total Bilirubin 0.67, AST 462 H, ALT 632 H, Alkaline Phosphatase 111 H, Total Protein 6.1, Albumin 3.8, Globulin 2.3, Albumin/Globulin Ratio 1.6, Lipase 51 Radiography Diagnostic Testing: Radiology Impression Abdomen/Pelvis CT 03/14/25 10:35 IMPRESSION: Cholelithiasis. Mildly distended gallbladder and findings suggestive of thickened gallbladder wall. Correlation with ultrasound recommended. Sigmoid diverticulosis. Fatty infiltration of the liver. Reading Location: [facility] Abdomen Ultrasound 03/14/25 11:03 IMPRESSION: 1. Cholelithiasis, mild gallbladder distention, mild gallbladder wall thickening and positive sonographic Butterfield's sign consistent with age-indeterminate cholecystitis with suspicion of acute cholecystitis. HIDA scan can be considered as warranted. 2. Nonspecific borderline biliary ductal dilatation with proximal common bile duct diameter of 0.41 cm and distal common bile duct diameter of 0.82 cm. No choledocholithiasis seen, MRCP can be considered as warranted. 3. Mild suspected diffuse fatty infiltration of the liver Reading Location: [facility] Physical Exam Const oriented x3 and no apparent distress Resp normal respiratory effort GI normal to inspection, nondistended, normoactive bowel sounds Assessment & Plan Assessment/Plan (1) Elevated liver enzymes: PLAN: The patient had elevated liver enzymes yesterday. They are continued to be elevated today. Patient had a HIDA yesterday which showed normal filling of the gallbladder. I believe this is something with liver etiology that is affecting the gallbladder. Currently she is having no abdominal pain. I will resume a diet to see if this causes any pain. I will also consult GI for the elevated liver enzymes. Tony Cabrera MD Pager: [facility] [address] [place] [address], [address] [place] [address] Office:
[2025-03-15 08:19] VITALS: BP 104/63; PULSE 58; RESP 16; TEMP 36.7; O2SAT 97
--- NOTE | 2025-03-15 09:20 | PN_ITS ---
Progress Note The radiologist called me and reported that the HIDA scan was actually positive and there was no visualization of the gallbladder. I had already fed her breakfast so I will plan on laparoscopic cholecystectomy tomorrow. I discussed this with her in detail. I discussed the procedure in detail with the patient. I discussed the risks, benefits, and alternatives of the procedure. I discussed the risks including but not limited to bleeding, infection, injury to surrounding organs such as the liver, bile duct, bowels. I did discuss the possibility of having to convert to an open procedure as well as the possibility that if any injuries occurred this may necessitate further surgery at a tertiary care center. Tony Cabrera MD Pager: [facility] [address] [place] [address] [address] [place] [address] Office:
[2025-03-15 09:38] LABS: CRP 3.24 mg/L (0.0-3.0)
[2025-03-15 09:40] LABS: Erythrocyte Sedimentation Rate 6 mm/hr (0-30)
[2025-03-15 13:52] VITALS: BP 111/70; PULSE 59; RESP 16; TEMP 36.4; O2SAT 99
--- NOTE | 2025-03-15 14:10 | CHAPLAIN ---
Type of Pastoral Visit _x__ Initial Visit ___ Follow-up Visit ___ On-call Visit ___ General Patient Visit ___ Spiritual Assessment ___ Family Conference ___ Bereavement ___ Rapid Response ___ Code Blue ___ Other (describe below) Pastoral Care Referral From _x__ Patient ___ Family ___ Nurse ___ Physician ___ Auto Research Engineer ___ Covered Button Maker ___ Other (describe below) Sacrament/Intervention _x__ Active listening ___ Anointing ___ Uatsdin ___ Bereavement ___ Communion ___ Bailey exploration ___ _x__ Life review _x__ Prayer ___ Reconciliation ___ Sacrament of Sick _x__ Supportive presence ___ Wedding ___ Other (describe below) Pastoral Comments patient admits some frustration as surgery is postponed until tomorrow; [place] and [place] things to do but will wait it out for better health; pt has family support and is connected to a local tenriism; pt welcomes someone to talk with and for prayer to be given
--- NOTE | 2025-03-15 18:19 | CON.PCM.GI_ITS ---
HPI Consult Data Date of Consult: 03/15/25 HPI Narrative Reason for Consultation: Abnormal LFTs HPI Narrative: ELLI GARCIA, is a 64-year-old female presenting to the emergency room with a chief complaint of abdominal pain. She admits to right upper quadrant pain in the setting of known stones in her gallbladder. Yesterday she went to a birthday democrat in the afternoon she ate some salad and peanut butter crackers for dinner between 8869-4576 hours. She states that around 0330 hrs. in the morning she awoke with pain in her abdomen. She was afebrile but hypertensive and tachycardic in the ED. Laboratory analysis: 03/15/25 04:37: WBC 2.7 L, RBC 4.07 L, Hgb 12.2, Hct 36.3 L, MCV 89.2, MCH 30.0, MCHC 33.6, RDW Std Deviation 45.5 H, RDW Coeff of Amanda 13.9, Plt Count 212, MPV 9.4, Immature Gran % (Auto) 0.000, Neut % (Auto) 54.4, Lymph % (Auto) 30.7, [place] % (Auto) 8.2, Eos % (Auto) 4.5, Baso % (Auto) 2.2 H, Absolute Neuts (auto) 1.5 L , Absolute Lymphs (auto) 0.82 L, Nucleated RBC % 0, ESR 6, Sodium 141, Potassium 4.1, Chloride 110 H, Carbon Dioxide 20.6 L, Anion Gap 10, BUN 14, Creatinine 0.70, Estim Creat Clear Calc 65.95, Est GFR (MDRD) Non-Af 95, BUN/Creatinine Ratio 19.5, Glucose 86, Calcium 8.7, Total Bilirubin 0.67, AST 462 H, ALT 632 H, Alkaline Phosphatase 111 H, C-React Prot Ext Range 3.24 H, Total Protein 6.1, Albumin 3.8, Globulin 2.3, Albumin/Globulin Ratio 1.6, Lipase 51 CT/Abdomen/Pelvis W IV Cont ONLY IMPRESSION: Cholelithiasis. Mildly distended gallbladder and findings suggestive of thickened gallbladder wall. Correlation with ultrasound recommended. Sigmoid diverticulosis. Fatty infiltration of the liver. US/Abdomen Limited IMPRESSION: 1. Cholelithiasis, mild gallbladder distention, mild gallbladder wall thickening and positive sonographic Butterfield's sign consistent with age-indeterminate cholecystitis with suspicion of acute cholecystitis. HIDA scan can be considered as warranted. 2. Nonspecific borderline biliary ductal dilatation with proximal common bile duct diameter of 0.41 cm and distal common bile duct diameter of 0.82 cm. No choledocholithiasis seen, MRCP can be considered as warranted. 3. Mild suspected diffuse fatty infiltration of the liver HIDA scan : the study was carried out for 120 minutes. There is nonvisualization of the gallbladder. Radiopharmaceutical is seen within the distal stomach and duodenum. [facility] Medical History Anxiety Depression Home Medications ?Medication ?Instructions ?Recorded ?Last Taken ?Type acetaminophen 500 mg capsule 1,000 mg PO Q6H PRN fever or pain 03/14/25 03/14/25 History ascorbate calcium-bioflavonoid 1 tab PO DAILY 03/14/25 03/13/25 20:00 History 1,000 mg-200 mg tablet (Rosalee-C 1 TAB with Bioflavonoids) chromium amino acid chelate 400 400 mcg PO DAILY 03/1403/13/25 08:00 History mcg tablet 400 mcg coenzyme Q10 100 mg capsule (Co 100 mg PO DAILY 03/13/25 20:00 History Q-10) 100 mg estradiol 0.01% (0.1 mg/gram) 1 g vaginal .COMPLEX 03/12/25 20:00 History vaginal cream 1 g evening primrose oil-linoleic 1 cap PO DAILY 03/14/25 03/13/25 History acid-gamolenic acid 1,000 mg capsule ([place] Oil) ginkgo biloba leaf extract 120 1 tab PO DAILY 03/14/25 03/13/25 History mg-choline bitartrate 110 mg tablet ([facility] Memory Support) krill oil 500 mg capsule 500 mg PO DAILY 03/14/25 History turmeric 400 mg capsule 400 mg PO DAILY 03/14/25 History vit A 600 mcg-vit D3 50 mcg-vit E 1 cap PO DAILY 02/24 07/21 Unknown History 101 mg-vit K1 1,000 mcg capsule Allergy/AdvReac Type Severity Reaction Status Date / Time acetaminophen (From Vicodin) Allergy Other Verified 05/19/25 09:41 etodolac (From Lodine) Allergy Unknown Verified 03/14/25 09:41 hydrocodone (From Vicodin) Allergy Other Verified 03/14/25 09:41 Surgical History History of hysterectomy Social History Smoking Status: Never smoker substance use type: does not use ROS Constitutional Constitutional: Denies fatigue, fever(s), poor appetite, weight gain or weight loss Gastrointestinal Gastrointestinal: Denies belching, bloating, change in bowel habits, change in stool character, chewing difficulty, coffee ground emesis, constipation, cramping, diarrhea, dyspepsia, dysphagia, early satiety, excessive flatus, fecal incontinence, heartburn, hematemesis, hematochezia, hemorrhoids, loose stools, melena, nausea, odynophagia, rectal bleeding, tenesmus, vomiting or weight changes Physical Exam Const alert, oriented x3, no apparent distress and healthy appearing General Appearance: cooperative GI normal to inspection, nondistended, normoactive bowel sounds, soft to palpation, non-tender and non-distended Percussion: normal to percussion Rectal Exam: deferred Lab / Micro Data 03/15/25 04:37 03/15/25 04:37 Labs: Laboratory Results - last 24 hr 03/15/25 04:37: WBC 2.7 L, RBC 4.07 L, Hgb 12.2, Hct 36.3 L, MCV 89.2, MCH 30.0, MCHC 33.6, RDW Std Deviation 45.5 H, RDW Coeff of Amanda 13.9, Plt Count 212, MPV 9.4, Immature Gran % (Auto) 0.000, Neut % (Auto) 54.4, Lymph % (Auto) 30.7, [place] % (Auto) 8.2, Eos % (Auto) 4.5, Baso % (Auto) 2.2 H, Absolute Neuts (auto) 1.5 L , Absolute Lymphs (auto) 0.82 L, Nucleated RBC % 0, ESR 6, Sodium 141, Potassium 4.1, Chloride 110 H, Carbon Dioxide 20.6 L, Anion Gap 10, BUN 14, Creatinine 0.70, Estim Creat Clear Calc 65.95, Est GFR (MDRD) Non-Af 95, BUN/Creatinine Ratio 19.5, Glucose 86, Calcium 8.7, Total Bilirubin 0.67, AST 462 H, ALT 632 H, Alkaline Phosphatase 111 H, C-React Prot Ext Range 3.24 H, Total Protein 6.1, Albumin 3.8, Globulin 2.3, Albumin/Globulin Ratio 1.6, Lipase 51 Assessment & Plan Assessment/Plan (1) Elevated liver enzymes: (2) Cholelithiasis: (3) Abdominal pain: PLAN: 64-year-old who comes in with right upper quadrant pain in the setting of known cholelithiasis and discovered to have increased LFTs. Differential diagnosis does include local inflammation secondary to gallbladder adjacent to the liver without any obstructive physiology in the hepatobiliary system. Micro choledocholithiasis is also differential diagnosis. She does not have any history consistent with any autoimmune hepatitis, primary sclerosing cholangitis, probable cirrhosis or IgG associated liver disease. I also do not suspect that this is a viral hepatitis. Patient will undergo cholecystectomy tomorrow with intraoperative cholangiogram. I will continue to follow. Thank you for allow me to be involved in the care of this patient. Charges/Coding Visit Charges Inpatient E&M: 29436 Init Hosp L3
[2025-03-15 20:00] VITALS: BP 102/69; PULSE 63; RESP 15; TEMP 36.7; O2SAT 96
[2025-03-16] VITALS (15 sets, daily range): BP systolic 108–137; BP diastolic 58–76; PULSE 51–74; RESP 15–18; TEMP 36.2–36.9; O2SAT 94–97; BMI 29.6
[2025-03-16 04:34] LABS: Absolute Lymphocyte Count 1.18 X10^3/uL (0.83-4.51); Absolute Neutrophil Count 1.7 X10^3/uL (2.0-7.7); Basophil# 0.06 X10^3/uL; Basophil% 1.8 % (0-1); Eosinophil# 0.13 X10^3/uL; Eosinophils% 3.9 % (0-5); Hematocrit 35.7 % (37-47); Hemoglobin 11.9 g/dL (12.0-15.0); Lymphocyte # 1.18 X10^3/ul (0.83-4.51); Lymphocyte % 35.2 % (19-41); Mean Corp Hgb Conc 33.3 g/dL (32-36); Mean Corpuscular Hgb 30.1 pg (27.0-32.0); Mean Corpuscular Volume 90.4 fL (81-99); Mean Platelet Vol. 9.8 fl (6.2-12.0); Monocyte# 0.32 X10^3/uL; Monocyte% 9.6 % (0-10); NRBC Flagged by Analyzer 0 % (0-5); Neutrophil # 1.66 X10^3/uL (2.7-7.7); Neutrophil % 49.5 % (47-70); Platelet Count 216 K/mm3 (150-450); RBC Distribution Width SD 46.5 fl (35.1-43.9); Red Blood Count 3.95 M/mm3 (4.2-5.4); White Blood Count 3.4 K/mm3 (4.4-11.0)
[2025-03-16 05:07] LABS: HEPATITIS B SURFACE AG Negative (Negative); Hep C Antibodies Non Reactive (Non Reactive); Hepatitis A IgM Antibody Negative (Negative); Hepatitis B Core AB IgM Negative (Negative)
[2025-03-16 06:20] LABS: ALB/GLOB Ratio 1.5 RATIO (0.9-2.4); AST(SGOT) 185 U/L (<=31); Alanine Aminotransfer ALT/SGPT 447 U/L (<=34); Albumin, Serum 3.7 g/dL (3.4-4.8); Alkaline Phosphatase 99 U/L (35-104); Anion Gap 9 (5-15); BUN 9 mg/dL (4-19); BUN/Creat Ratio 15.4 RATIO (10-20); Calcium,Total 8.7 mg/dL (7.6-11.0); Chloride 112 mmol/L (98-108); Creatinine, Serum 0.62 mg/dL (0.70-1.20); EST Glomerular Filtration Rate 98 (>60); Estimated Creatinine Clearance 65.95 ml/min (50-250); Globulin 2.4 g/dL (2.2-4.2); Glucose 91 mg/dL (70-99); Potassium 3.9 mmol/L (3.3-5.1); Protein, Total 6.1 g/dL (5.9-8.4); Sodium Level 142 mmol/L (133-145); Total Bilirubin 0.34 mg/dL (0.00-1.30)
[2025-03-16] MEDS: Piperacil/Tazobactam 3.375 GM in 0.9% Normal Saline (50mL MB+) 50 ML IV ×3 (06:38→22:59)
--- NOTE | 2025-03-16 07:59 | PN.SURG_ITS ---
Subjective Subjective Patient is comfortable this morning Objective Data Objective Data Vital Signs: Vital Signs Temp Pulse Resp BP Pulse Ox O2 Del Method 98.1 F 56 L 15 113/72 97 Room Air 03/16/25 04:00 03/16/25 04:00 03/16/25 04:00 03/16/25 04:00 03/16/25 04:00 03/16/25 04:01 Oxygen Delivery Method Room Air Weight: 167 lb 3.2 oz Body Mass Index (BMI) 29.6 Intake & Output: Intake and Output for Last 24 Hours 03/14/25 03/15/25 03/16/25 23:59 23:59 23:59 Intake Total 50 / 50 2248.33 / 2248.33 50 / 50 Balance 50 / 50 2248.33 / 2248.33 50 / 50 Lab / Micro Data 03/16/25 03:57 03/16/25 03:57 Labs: Laboratory Results - last 24 hr 03/15/25 04:37: ESR 6, C-React Prot Ext Range 3.24 H 03/15/25 09:12: Hepatitis A IgM Ab Negative, Hep Bs Antigen Negative, Hep B Core IgM Ab Negative, Hepatitis C Ab (EIA) Non Reactive, Hep C Ab Comment Comment 03/16/25 03:57: WBC 3.4 L, RBC 3.95 L, Hgb 11.9 L, Hct 35.7 L, MCV 90.4, MCH 30.1, MCHC 33.3, RDW Std Deviation 46.5 H, RDW Coeff of Amanda 14.0, Plt Count 216, MPV 9.8, Immature Gran % (Auto) 0.000, Neut % (Auto) 49.5, Lymph % (Auto) 35.2, [place] % (Auto) 9.6, Eos % (Auto) 3.9, Baso % (Auto) 1.8 H, Absolute Neuts (auto) 1.7 L, Absolute Lymphs (auto) 1.18, Nucleated RBC % 0, Sodium 142, Potassium 3.9, Chloride 112 H, Carbon Dioxide 21.0, Anion Gap 9, BUN 9, Creatinine 0.62 L, Estim Creat Clear Calc 65.95, Est GFR (MDRD) Non-Af 98, BUN/Creatinine Ratio 15.4, Glucose 91, Calcium 8.7, Total Bilirubin 0.34, AST 185 H, ALT 447 H, Alkaline Phosphatase 99, Total Protein 6.1, Albumin 3.7, Globulin 2.4, Albumin/Globulin Ratio 1.5 Physical Exam Const oriented x3 and no apparent distress Resp normal respiratory effort GI normal to inspection, nondistended, normoactive bowel sounds Assessment & Plan Assessment/Plan (1) Elevated liver enzymes: (2) Cholelithiasis: PLAN: Plan The patient had a HIDA scan which showed no filling of the gallbladder. Plan for laparoscopic cholecystectomy today. I discussed this with her again in detail and answered all of her questions. She is on scheduled Zosyn. Tony Cabrera MD Pager: [facility] [address] [place] [address], [address] [place] [address] Office:
[2025-03-16] MEDS: 0.9% Normal Saline (1000mL) 1,000 ML 100 ML IV ×2 (08:40→13:49)
--- NOTE | 2025-03-16 09:35 | CASEMGMT ---
JOVITA RAINEY Assessment: Face to Face with pt for initial transition planning/care coordination assessment. JOVITA RAINEY introduced self and role at [facility], pt voices understanding and consents to assessment. Pt is A&O x4 and answers all questions appropriately at this time. Pt sitting up in bed in no distress with at bedside. Care providers, pharmacy, and demographics verified/updated. Admitting Dx: RUQ pain Strata Score: 1 PCP:Saumya Specialists: Camacho, neuro; uro in [place] [facility]: yes LNOK: Janey Mcintosh, ; Jim Mcintosh, son Living Arrangements: Pt lives with in a two story home with 4 steps to enter. Pt reports she is I in ADL/IADLs and denies concerns at home. Transportation: Pt drives self and denies concerns with transportation. DME:walker, pt does not use AD HHC/SNF: Denies hx of Pt states no concerns with going home at time of dc. Pt to have OR today. Pt states no further concerns/needs. CM to follow. Advised pt to ask CM if any further questions/concerns/needs arise, voices understanding. Pt Goal: Home Plan: Home [place] HUSSEIN CM
--- NOTE | 2025-03-16 10:19 | PCM.PRE.AN2 ---
ASA Classification* ASA Classification ASA Classification: 2 Assessment & Plan Anesthesia* Anesthesia Assessment Anesthesia Assessment: Discussed sedation and/or anesthesia options, risks, benefits, and alternatives with patient/parents/legal guardian/POA. Questions invited. The patient/parents/legal guardian/POA seems to understand and agrees to proceed with anesthesia plan. Reviewed the physical assessment, medical history, allergy history and patient home medications list prior to surgery/procedure/anesthetic and documented any changes. Performed airway and anesthesia risk assessments. Anesthesia Type Anesthesia Type: General Anesthesia Focused Assessment* Temperature: 97.8 F Pulse Rate: 57 Blood Pressure: 114/65 Respiratory Rate: 18 Pulse Ox: 97 Airway Assessment Mouth opens: >3 cm Mallampati Score: II Focused Labs Anesthesia Preop lab: CBC WBC 3.4 K/mm3 (4.4-11.0) L 03/16/25 03:57 03/16/25 RBC 3.95 M/mm3 (4.2-5.4) L 03/16/25 03:57 03/16/25 Hgb 11.9 g/dL (12.0-15.0) L 03/16/25 03:57 03/16/25 Hct 35.7 % (37-47) L 03/16/25 03:57 03/16/25 Plt Count 216 K/mm3 (150-450) 03/16/25 03:57 03/16/25 CHEMISTRY Potassium 3.9 mmol/L (3.3-5.1) 03/16/25 03:57 03/16/25 Sodium 142 mmol/L (133-145) 03/16/25 03:57 03/16/25 BUN 9 mg/dL (4-19) 03/16/25 03:57 03/16/25 Creatinine 0.62 mg/dL (0.70-1.20) L 03/16/25 03:57 03/16/25 Glucose 91 mg/dL (70-99) 03/16/25 03:57 03/16/25 COAG Pre-Assessment Diagnosis/Proposed Procedure Planned Operative Procedure(s): Laparoscopic cholecystectomy. 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 When Was Last Pacemaker Check QUESTION #4 FULL TEXT: You/Your Family Experience fever (hyperthermia) with Anesthesia Last Oral Intake Last Oral intake: Last Oral Intake NPO since 00:00 03/16/25 08:29 Meds taken in AM with sips of water? Meds patient instructed to take am of surgery PONV PONV - plaster mechanic: PONV - plaster mechanic Female HX of Motion Sickness HX of N/V After Surgery Non-Smoker Duration of Surgery greater than 60 minutes Number of Risk Factors PONV Score Height & Weight Height & Weight: Anesthesia: Height & Weight Height 5 ft 2.99 in 03/16/25 08:29 Weight: 75.841 kg 03/16/25 08:29 Body Mass Index (BMI) 29.6 03/16/25 08:29 Respiratory Assessment Respiratory Assessment - plaster mechanic: Respiratory Tract Infection Hx - plaster mechanic Hx Respiratory Tract Infection No 03/16/25 08:37 STOP Sleep Apnea STOP Sleep Apnea - plaster mechanic: STOP Sleep Apnea - plaster mechanic Hx Hypertension No 03/14/25 16:44 Hx Sleep Apnea No 03/14/25 16:44 CPAP BIPAP Do you snore loudly (louder No 03/14/25 16:44 than talking or can be heard Do you often feel tired/ No 03/14/25 16:44 fatigued/ sleepy during daytime? Has anyone observed you stop No 03/14/25 16:44 breathing during sleep? STOP Results Negative 03/14/25 16:44 QUESTION #5 FULL TEXT : Do you snore loudly (louder than talking or can be heard through closed doors)? 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 Specify any problems Hx of Preganancy in last 3 No 03/14/25 16:44 Months Nurse Filling Out Transfusion JDIAL 03/14/25 16:44 & Questions: Date: 03/14/25 03/14/25 16:44 Time: 16:47 03/14/25 16:44 Patient unable to answer at this time (ie. confused, unrespo /Reproduction History /Reproductive History - plaster mechanic: /Reproductive Hx- plaster mechanic Hx Now No 03/16/25 08:37 Gestational Age (in weeks): EDC: Hx Hx Para Hx Section SAB No 03/16/25 08:37 Active Medications Active Medications: Current Medications Generic Name Dose Route Start Last Admin Trade Name Freq PRN Reason Stop Dose Admin Sodium Chloride 1,000 mls @ 100 mls/hr 03/14/25 13:00 03/16/25 08:40 IV 100 mls/hr .Q10H MARKOS Administration Piperacillin Sod/Tazobactam 50 mls @ 12.5 mls/hr 03/14/25 22:00 03/16/25 06:38 Sod 3.375 gm/ Sodium Chloride IV 12.5 mls/hr Q8 MARKOS Administration Morphine Sulfate 2 - 4 mg 03/14/25 13:00 Morphine 2 Mg/Ml Syringe IV Q2H PRN PRN Pain Score 4-10 Sodium Chloride 10 - 40 ml 03/14/25 13:00 0.9% Saline Lock 10 Ml Syringe IV UD PRN SALINE FLUSH Sodium Chloride 10 - 40 ml 03/14/25 13:00 0.9% Saline Lock 10 Ml Syringe IV UD PRN SALINE FLUSH Sodium Chloride 10 - 40 ml 03/14/25 17:00 0.9% Saline Lock 10 Ml Syringe IV UD PRN SALINE FLUSH PFSH Medical History Anxiety Depression Home Medications ?Medication ?Instructions ?Recorded ?Last Taken ?Type acetaminophen 500 mg capsule 1,000 mg PO Q6H PRN fever or pain 03/14/25 03/14/25 History ascorbate calcium-bioflavonoid 1 tab PO DAILY 03/14/25 03/13/25 20:00 History 1,000 mg-200 mg tablet (Rosalee-C 1 TAB with Bioflavonoids) chromium amino acid chelate 400 400 mcg PO DAILY 03/14/25 03/13/25 08:00 History mcg tablet 400 mcg coenzyme Q10 100 mg capsule (Co 100 mg PO DAILY 03/14/25 03/13/25 20:00 History Q-10) 100 mg estradiol 0.01% (0.1 mg/gram) 1 g vaginal .COMPLEX 03/14/25 03/12/25 20:00 History vaginal cream 1 g evening primrose oil-linoleic 1 cap PO DAILY 03/14/25 03/13/25 History acid-gamolenic acid 1,000 mg capsule ([place] Oil) ginkgo biloba leaf extract 120 1 tab PO DAILY 03/14/25 03/13/25 History mg-choline bitartrate 110 mg tablet ([facility] Memory Support) krill oil 500 mg capsule 500 mg PO DAILY 03/14/25 03/13/25 History turmeric 400 mg capsule 400 mg PO DAILY 03/14/25 03/13/25 History vit A 600 mcg-vit D3 50 mcg-vit E 1 cap PO DAILY 03/14/25 Unknown History 101 mg-vit K1 1,000 mcg capsule Allergy/AdvReac Type Severity Reaction Status Date / Time acetaminophen (From Vicodin) Allergy Other Verified 03/14/25 09:41 etodolac (From Lodine) Allergy Unknown Verified 03/14/25 09:41 hydrocodone (From Vicodin) Allergy Other Verified 03/14/25 09:41 Surgical History History of hysterectomy Social History Smoking Status: Never smoker substance use type: does not use Review of Systems (Anesthesia) ROS Narrative System reviewed and no additional complaints, except as documented.
--- NOTE | 2025-03-16 11:08 | RAD_ITS ---
PROCEDURE: CHOLANGIOGRAM/ O R,INITIAL 03/16/2025 REASON FOR EXAM: LAP JACQUELINE W/ IOC TECHNIQUE: Intraoperative fluoroscopic images provided for laparoscopic cholecystectomy and cholangiogram. 14.4 seconds of fluoroscopy. 6.55 mGy. COMPARISON: None FINDINGS: Intraoperative cholangiogram was performed by the surgeon. Imaging was provided. The intrahepatic biliary ducts are unremarkable. The common bile duct is not dilated. No intraluminal filling defect is seen. There is free flow of contrast into the duodenum. RAD/Cholangiogram/ O R,Initial IMPRESSION: Unremarkable intraoperative cholangiogram. Reading Location: [facility]
--- NOTE | 2025-03-16 11:10 | GALL_PTH ---
PATIENT: ELLI GARCIA LOC: MS3 U#:[id number] AGE/SX: 64/F ROOM: [facility] [place]03/15/[address]: Dr. Tony Cabrera MD : 1960 BED: 1 DIS: 03/17/2025 SPEC #: [id number] RECD: 03/16/25 11:59 STATUS: CAPRI ALLISON #: [id number] MOHINI: 03/16/25 11:[address]: Tony Cabrera DEPT: SURGICAL PATHOLOGY RECD BY: Blake Montoya ENTERED: 03/16/25 13:15 SP TYPE: NASIR TURNER DR: MD Dr. Mike Rivera DO Tissues: A - Gallbladder, NOS Procedures: Surgery Specimen Level III HEADER OPERATION: Laparoscopic, cholecystectomy with cholangiograms PRE-OP DIAGNOSIS: Elevated liver enzymes, cholelithiasis TISSUE SUBMITTED: A- Gallbladder MICROSCOPIC DIAGNOSIS A. Gallbladder, cholecystectomy: * Chronic cholecystitis, focal intestinal metaplasia. * Cholelithiasis. MICROSCOPIC DESCRIPTION Slides are reviewed. GROSS DESCRIPTION A. Received in formalin in a container labeled with the patient's name, date of , and gallbladder is an intact 11.5 x 3.5 x 3.3 cm cholecystectomy specimen. A clamped cystic duct margin is identified measuring 0.3 cm in length by 0.2 cm in diameter (inked black). The serosa is moore-pink delicate adhesions. The specimen is opened to reveal a moderate amount of thick green bile admixed with multiple yellow stone fragments. There is a single large, firm, and bosselated stone within the fundus measuring 3.5 x 2.6 x 2.5 cm. The mucosa is red-caro and nodular. A scant amount of typical velvety mucosa is identified towards the cystic duct. The wall thickness ranges from 0.1 to 0.3 cm. Supervisor Body Assembly sections:A1. Cystic duct margin, en face with full-thickness sectionsA2. Full-thickness sections [facility] 03-16-2025 CPT:56180
[2025-03-16] MEDS: Bupiv/Epi 0.25% 30 ML Vial (11:30)
--- NOTE | 2025-03-16 11:40 | PCM.OPRPT ---
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 Entry Level Software Engineer: Rudy Acosta Tasks completed by first coat operator: Opening & closing and Retracting Type of Anesthesia: General/Regional RN Documented Start/Stop Times: Operation Date: 03/16/25 11:10 Case Time Into Pre-Op 03/16/25 10:15 Anesthesia Start 03/16/25 10:36 Into Room 03/16/25 10:36 Procedure Start 03/16/25 10:56 Procedure Start Time: 10:56 Procedure Stop Time: 11:45 Select all DRAINS/GRAFTS/IMPLANTS that apply: None Estimated Blood Loss: 10 Specimen collected: Yes Description of specimen(s) removed: Gallbladder Description of surgery: After obtaining informed consent patient was brought back to the operating room. General anesthesia was induced. The abdomen was prepped and draped in usual sterile fashion. A small midline incision was made superior to the umbilicus and deepened to the level of fascia. The fascia was elevated and incised. Next the peritoneum was elevated and incised in the same fashion. Finger sweep was performed and the Rosales trocar was placed into the abdomen. The balloon was inflated. The abdomen was inflated to 15 mmHg. Next a camera was introduced into the abdomen and the abdomen was inspected. Next under direct visualization three 5-mm ports were placed one subxiphoid and 2 subcostal. Next the gallbladder was elevated and retracted toward the right shoulder. The peritoneum was stripped from the gallbladder. The infundibulum was located and retracted laterally. Next the triangle of Calot was dissected and the cystic duct and cystic artery were identified. Cholangiograms were performed. The Desir clamp was used to clamp across the infundibulum and the catheter needle was inserted into the gallbladder. Under fluoroscopy contrast was instilled into the gallbladder and the common duct, cystic duct as well as proximal hepatic ducts were identified. There were 2 small filling defects in the distal common bile duct. These were forced through using the contrast and then there was good flow into the duodenum. There were no other filling defects noted in the common bile duct. The clamp was removed as well as the needle and the infundibulum was grasped once more. Three hemolock clips were placed across the cystic duct. The cystic duct was then divided leaving 2 clips on the stump. The cystic artery was clipped and divided in the same fashion. The hook cautery was then used to take the gallbladder off of the gallbladder bed. Hemostasis was obtained. Gallbladder fossa was irrigated and no active bleeding or bile leakage was noted. Next the camera was introduced in the subxiphoid port. An Endopouch bag was placed through the umbilical port and the gallbladder was placed into it. The gallbladder was then removed through the umbilical incision. The camera was then reinserted through the umbilical port. The gallbladder fossa was inspected once more and noted to be hemostatic with no leaking bile. The abdomen was suctioned dry. The 5 mm ports were removed under direct visualization. The umbilical port was then removed and the air was removed from the abdomen. Next using an 0 Vicryl suture the umbilical fascia was closed in a [id number] fashion. The umbilical port site was irrigated local anesthetic was administered to all the incisions. All the incisions were closed with interrupted subcuticular 4-0 Monocryl sutures followed by Steri-Strips and dressings. The patient was awoken and taken to PACU in stable condition. Surgical Findings: 2 small stones in the common bile duct which were forced through into the duodenum Complications Complications: No Admit VTE Documentation VTE Mechan Device Prophylaxis: SCD's
--- NOTE | 2025-03-16 11:44 | DS.PCM_ITS ---
Providers Date of Admission: 03/15/25 Primary Care Physician: Dr. Hermila Kerns MD Consultations 03/15/25 07:26 Consult: Gastroenterology Routine Consulting Provider: Friend,Mike Reason for Consult: elevated liver enzymes EMERGENT Consult: No MD Notified: Yes Date Notified: 03/15/25 Time Notified: 07:56 Method of Notification: Text Reason For Visit: RUQ PAIN Diagnosis Discharge Diagnosis (1) Elevated liver enzymes: Status: Acute Code(s): R74.8 - Abnormal levels of other serum enzymes (2) Cholelithiasis: Status: Acute Code(s): K80.20 - Calculus of gallbladder without cholecystitis without obstruction Plan The patient had a HIDA scan which showed no filling of the gallbladder. Plan for laparoscopic cholecystectomy today. I discussed this with her again in detail and answered all of her questions. She is on scheduled Zosyn. Tony Cabrera MD Pager: [facility] [address] [place] [address], [address] [place] [address] Office: Medications at Discharge Home Medications acetaminophen 500 mg capsule 1,000 mg PO Q6H PRN fever or pain 03/14/25 ascorbate calcium-bioflavonoid 1,000 mg-200 mg tablet (Rosalee-C with Bioflavonoids) 1 tab PO DAILY 03/14/25 chromium amino acid chelate 400 mcg tablet 400 mcg PO DAILY 03/14/25 coenzyme Q10 100 mg capsule (Co Q-10) 100 mg PO DAILY 03/14/25 estradiol 0.01% (0.1 mg/gram) vaginal cream 1 g vaginal .COMPLEX 03/14/25 evening primrose oil-linoleic acid-gamolenic acid 1,000 mg capsule (Phoenix Oil) 1 cap PO DAILY 03/14/25 ginkgo biloba leaf extract 120 mg-choline bitartrate 110 mg tablet (Brainstron Memory Support) 1 tab PO DAILY 03/14/25 krill oil 500 mg capsule 500 mg PO DAILY 03/14/25 turmeric 400 mg capsule 400 mg PO DAILY 03/14/25 vit A 600 mcg-vit D3 50 mcg-vit E 101 mg-vit K1 1,000 mcg capsule 1 cap PO DAILY 03/14/25 oxycodone 5 mg tablet 5 - 10 mg (1 - 2 x 5 mg) PO Q4H PRN PRN Pain Score 4-10 5 days #20 tabs 03/16/25 Hospital Course Operations cholecystecomy Procedures None Summary of Care Provided Hospital Course: Patient was admitted with elevated liver enzymes. She had a HIDA scan which was originally read as normal but then it was read read as nonfilling of the gallbladder. The patient had already eaten that day so she was kept 1 additional day and then she was brought to the operating room for laparoscopic cholecystectomy. This revealed a small stone in the common diet bile duct which was able to be pushed through using the contrast. There is also large stones in the gallbladder. Once patient tolerating diet she will be discharged home Weight / BMI Weight Weight: 167 lb 3.2 oz Body Mass Index (BMI) 29.6 ABG / Lab / Microbiology Data 03/16/25 03:57 03/16/25 03:57 Laboratory: Laboratory Results - last 24 hr 03/15/25 09:12: Hepatitis A IgM Ab Negative, Hep Bs Antigen Negative, Hep B Core IgM Ab Negative, Hepatitis C Ab (EIA) Non Reactive, Hep C Ab Comment Comment 03/16/25 03:57: WBC 3.4 L, RBC 3.95 L, Hgb 11.9 L, Hct 35.7 L, MCV 90.4, MCH 30.1, MCHC 33.3, RDW Std Deviation 46.5 H, RDW Coeff of Amanda 14.0, Plt Count 216, MPV 9.8, Immature Gran % (Auto) 0.000, Neut % (Auto) 49.5, Lymph % (Auto) 35.2, [place] % (Auto) 9.6, Eos % (Auto) 3.9, Baso % (Auto) 1.8 H, Absolute Neuts (auto) 1.7 L, Absolute Lymphs (auto) 1.18, Nucleated RBC % 0, Sodium 142, Potassium 3.9, Chloride 112 H, Carbon Dioxide 21.0, Anion Gap 9, BUN 9, Creatinine 0.62 L, Estim Creat Clear Calc 65.95, Est GFR (MDRD) Non-Af 98, BUN/Creatinine Ratio 15.4, Glucose 91, Calcium 8.7, Total Bilirubin 0.34, AST 185 H, ALT 447 H, Alkaline Phosphatase 99, Total Protein 6.1, Albumin 3.7, Globulin 2.4, Albumin/Globulin Ratio 1.5 D/C Instructions Discharge Diet: Light diet - advance as tolerated Discharge Activity: May Not Drive (for 2-3 days or while taking narcotic pain medications.) and - (Do not drive, work heavy equipment or sign legal documents for 24 hours.) May shower in (days): 1 Lifting Restrictions: 20 lbs for 2 weeks Additional Activity Instructions: Pain medication may cause nausea. You should typically eat light foods as you take your pain medications. Pain medication may also cause constipation. If this is a problem for you, please discuss with your doctor. Call your doctor if your incision/area has: Continuous Slow Oozing, Sudden Increased Bleeding, Increased Pain/ Swelling, Increased Redness and Foul Smelling Discharge Call your doctor if you observe: Fever of 101 or Higher Suture Line Care: Avoid Pulling/Pushing and Avoid Pinching/Bending Remove Dressing in: 2 days Additional Dressing/Incision Instructions: Leave operative bandaids on for 2 days. When you remove dressing, leave Steri-Strips on until your follow-up appointment, or until the Steri-Strips fall off on their own. DC O2, CPAP, BIPAP Needs Home O2 Discharge instructions: No Please Follow Up With: Tony Cabrera MD When: Please call to schedule 2 week follow up appointment. [phone] Meaningful Use Info Meaningful Use Meaningful Use Diagnoses (Choose all that apply): None applicable Ischemic Stroke Statin Dosing Therapy Reference: STATIN DOSE THERAPY REFERENCE: * Patients > 75 years receive moderate or high dose statin therapy. * Patients 75 years or YOUNGER should receive HIGH intensity statin dose unless contraindicated. You will be required to document reason for non-treatment if statin daily dose does not meet guidelines. HIGH DOSE STATIN THERAPY DAILY Atorvastatin > than or = to 40 mg Rosuvastatin > than or = to 20 mg Amlodipine + Atorvastatin > than or = to 2.5/40 mg Ezetimibe + Simvastatin 10/80 mg Simvastatin 80mg Discharge Plan Admission Admit Date/Time: 03/15/25 12:37 Attending Provider: Tony Cabrera Primary Care Provider: Hermila Kerns Consulting Providers: Mike Fong Discharge Orders/Prescriptions Prescriptions: New oxycodone 5 mg Tablet 5 - 10 mg PO Q4H PRN PRN (Reason: Pain Score 4-10) 5 Days Qty: 20 0RF Continued estradiol 0.01 % (0.1 mg/gram) cream 1 g vaginal .COMPLEX Rx Instructions: 1 g vaginally twice weekly; vaginally twice weekly; acetaminophen 500 mg capsule 1,000 mg PO Q6H PRN (Reason: fever or pain) chromium amino acid chelate 400 mcg tablet 400 mcg PO DAILY Brainstrong Memory Support 120 mg- 110 mg tablet 1 tab PO DAILY Phoenix Oil 1,000 mg capsule 1 cap PO DAILY Rx Instructions: administer with a meal Rosalee-C with Bioflavonoids 1,000-200 mg tablet 1 tab PO DAILY vit A-vit D3-vit E-vit K1 600 mcg-50 mcg- 101 mg-1,000mcg capsule 1 cap PO DAILY turmeric 400 mg capsule 400 mg PO DAILY krill oil 500 mg capsule 500 mg PO DAILY coenzyme Q10 [Co Q-10] 100 mg capsule 100 mg PO DAILY Referrals / Follow Up: Hermila Kerns MD [Primary Care Provider] - Disposition Disposition (needs filled in before D/C Order can be placed): Home, Self Care
--- NOTE | 2025-03-16 12:02 | PCM.POST.ANE ---
Anesthesia: Postop Eval I Current Vital Signs Temperature: 97.1 F Pulse Rate: 74 Blood Pressure: 130/72 Respiratory Rate: 16 Pulse Ox: 96 Oxygen Delivery Method: Room Air Assessment Airway patent: Yes Spontaneous unlabored respirations: Yes Mental status: Awake and Calm nausea: No Vomiting: No Anesthesia Complication: No Fluid Hydration Crystalloid volume administer (ml): 1,000 Total IV fluid infused: 1,000 Progress Note Anesthesia document: Postop Eval 1 completed: Yes
--- NOTE | 2025-03-16 13:18 | POSTOPAN2_ITS ---
Anesthesia Postop Eval I Sum Postop Eval Completion status Anesthesia document: Postop Eval 1 completed: Yes Anesthesia Postop Eval I Summary Anesthesia Postop Eval I Summary: Anesthesia Postop Eval I: Assessment Summary Airway patent Yes 03/16/25 12:02 [email or web address] Spontaneous unlabored Yes 03/16/25 12:02 [email or web address] [email or web address] respirations Mental status Awake,Calm 03/16/25 12:02 [email or web address] nausea No 03/16/25 12:02 TUBE [email or web address] Vomiting No 03/16/25 12:02 [email or web address] [email or web address] Anesthesia Postop Eval I: Fluid Summary Crystalloid volume administer 1,000 03/16/25 12:02 [email or web address] [email or web address] (ml) Colloids volume administered ( ml) Blood Product volume administered (ml) Total IV fluid infused 1,000 03/16/25 12:02 [email or web address] [email or web address] Anesthesia Postop Eval I: Summary Notes Anesthesia Complication No 03/16/25 12:02 [email or web address] Anesthesia Complication Comment: Post-operative progress note Anesthesia: Postop Eval II Evaluation Mental status: Awake Pain Level: 2 nausea: No Vomiting: No
--- NOTE | 2025-03-16 13:18 | PCM.POSTANE2 ---
Anesthesia Postop Eval I Sum Postop Eval Completion status Anesthesia document: Postop Eval 1 completed: Yes Anesthesia Postop Eval I Summary Anesthesia Postop Eval I Summary: Anesthesia Postop Eval I: Assessment Summary Airway patent Yes 03/16/25 12:02 [email or web address] [email or web address] Spontaneous unlabored Yes 03/16/25 12:02 ELECTRIFICATION ADVISER.[email or web address] respirations Mental status Awake,Calm 03/16/25 12:02 ELECTRIFICATION [email or web address].[email or web address] nausea No 03/16/25 12:02 ELECTRIFICATION ADVISER.GDOTT Vomiting No 03/16/25 12:02 ELECTRIFICATION ADVISER.[email or web address] Anesthesia Postop Eval I: Fluid Summary Crystalloid volume administer 1,000 03/16/25 12:02 ELECTRIFICATION ADVISER.GDOTT (ml) Colloids volume administered ( ml) Blood Product volume administered (ml) Total IV fluid infused 1,000 03/16/25 12:02 ELECTRIFICATION ADVISER.GDOTT Anesthesia Postop Eval I: Summary Notes Anesthesia Complication No 03/16/25 12:02 ELECTRIFICATION ADVISER.GDOTT Anesthesia Complication Comment: Post-operative progress note Anesthesia: Postop Eval II Evaluation Mental status: Awake Pain Level: 2 nausea: No Vomiting: No
[2025-03-16] MEDS: 0.9% Normal Saline (250mL Bag) 250 ML 15 ML IV (16:05)
--- NOTE | 2025-03-16 16:48 | PN_ITS ---
Progress Note Patient underwent cholecystectomy today. Talk with Dr. Cabrera and she had multiple stones in her gallbladder and some stones in the common bile duct which were flushed during the intraoperative cholangiogram. She is not having any pain at this time. Physical Exam Const oriented x3 and no apparent distress Resp normal respiratory effort GI normal to inspection, nondistended, normoactive bowel sounds Assessment & Plan Assessment/Plan (1) Elevated liver enzymes: (2) Cholelithiasis: (3) Abdominal pain: PLAN: 64-year-old who comes in with right upper quadrant pain in the setting of known cholelithiasis and discovered to have increased LFTs. Differential diagnosis does include local inflammation secondary to gallbladder adjacent to the liver without any obstructive physiology in the hepatobiliary system. Micro choledocholithiasis is also differential diagnosis. She does not have any history consistent with any autoimmune hepatitis, primary sclerosing ch olangitis, probable cirrhosis or IgG associated liver disease. I also do not suspect that this is a viral hepatitis. Patient will undergo cholecystectomy tomorrow with intraoperative cholangiogram. I will continue to follow. Thank you for allow me to be involved in the care of this patient. PLAN: Plan 03/16/2025-patient's liver enzymes continue to go down and are consistent with a past gallstone. Agree with the patient did not need a liver biopsy at this time. If labs continue to improve then she will not need autoimmune workup. Visit Charges Inpatient E&M: 22531 Subs Hosp L3
[2025-03-16 17:08] LABS: Anti-Mitochondrial AB <20.0 Units (0.0-20.0)
[2025-03-16] MEDS: Acetaminophen 325 MG Tablet 650 MG PO (18:14)
[2025-03-17] MEDS: 0.9% Normal Saline (1000mL) 1,000 ML 100 ML IV (00:19)
[2025-03-17] MEDS: Acetaminophen 325 MG Tablet 650 MG PO (00:20)
[2025-03-17 05:12] VITALS: BP 99/56; PULSE 57; RESP 18; TEMP 36.7; O2SAT 96
[2025-03-17] MEDS: Piperacil/Tazobactam 3.375 GM in 0.9% Normal Saline (50mL MB+) 50 ML IV (05:16)
[2025-03-17 05:43] LABS: Absolute Lymphocyte Count 1.02 X10^3/uL (0.83-4.51); Absolute Neutrophil Count 6.1 X10^3/uL (2.0-7.7); Basophil# 0.02 X10^3/uL; Basophil% 0.3 % (0-1); Hematocrit 34.9 % (37-47); Hemoglobin 11.8 g/dL (12.0-15.0); Lymphocyte # 1.02 X10^3/ul (0.83-4.51); Lymphocyte % 13.3 % (19-41); Mean Corp Hgb Conc 33.8 g/dL (32-36); Mean Corpuscular Hgb 30.3 pg (27.0-32.0); Mean Corpuscular Volume 89.7 fL (81-99); Mean Platelet Vol. 9.7 fl (6.2-12.0); Monocyte% 6.5 % (0-10); NRBC Flagged by Analyzer 0 % (0-5); Neutrophil # 6.12 X10^3/uL (2.7-7.7); Neutrophil % 79.6 % (47-70); Platelet Count 217 K/mm3 (150-450); RBC Distribution Width CV 13.7 % (11.6-14.6); RBC Distribution Width SD 44.7 fl (35.1-43.9); Red Blood Count 3.89 M/mm3 (4.2-5.4); White Blood Count 7.7 K/mm3 (4.4-11.0)
[2025-03-17 06:24] LABS: ALB/GLOB Ratio 1.4 RATIO (0.9-2.4); AST(SGOT) 112 U/L (<=31); Alanine Aminotransfer ALT/SGPT 329 U/L (<=34); Albumin, Serum 3.6 g/dL (3.4-4.8); Alkaline Phosphatase 92 U/L (35-104); Anion Gap 10 (5-15); BUN 12 mg/dL (4-19); BUN/Creat Ratio 19.7 RATIO (10-20); Calcium,Total 8.5 mg/dL (7.6-11.0); Carbon Dioxide 18.9 mmol/L (21.0-32.0); Chloride 111 mmol/L (98-108); Creatinine, Serum 0.63 mg/dL (0.70-1.20); EST Glomerular Filtration Rate 98 (>60); Estimated Creatinine Clearance 65.95 ml/min (50-250); Globulin 2.5 g/dL (2.2-4.2); Glucose 116 mg/dL (70-99); Protein, Total 6.1 g/dL (5.9-8.4); Sodium Level 140 mmol/L (133-145); Total Bilirubin 0.33 mg/dL (0.00-1.30)
--- NOTE | 2025-03-17 07:41 | PN.SURG_ITS ---
Subjective Subjective Patient evaluated resting comfortably in bed. She notes generalized abdominal discomfort. She denies any nausea, vomiting, fever. She is tolerating current diet well. She was able to urinate 4-5 times over night with a good urine stream. She was straight cathed once yesterday evening. Objective Data Objective Data Vital Signs: Vital Signs Temp Pulse Resp BP Pulse Ox O2 Del Method 98.1 F 57 L 18 99/56 L 96 Room Air 03/17/25 05:12 03/17/25 05:12 03/17/25 05:12 03/17/25 05:12 03/17/25 05:12 03/17/25 05:12 Oxygen Delivery Method Room Air Weight: 167 lb 3.2 oz Body Mass Index (BMI) 29.6 Intake & Output: Intake and Output for Last 24 Hours 03/15/25 03/16/25 03/17/25 23:59 23:59 23:59 Intake Total 2248.33 / 2248.33 4096.67 / 4096.67 1150 / 1150 Output Total 1000 / 1000 Balance 2248.33 / 2248.33 3096.67 / 3096.67 1150 / 1150 Lab / Micro Data 03/17/25 05:17 03/17/25 05:17 Labs: Laboratory Results - last 24 hr 03/15/25 09:12: Anti-Mitochondrial Ab <20.0 03/17/25 05:17: WBC 7.7, RBC 3.89 L, Hgb 11.8 L, Hct 34.9 L, MCV 89.7, MCH 30.3, MCHC 33.8, RDW Std Deviation 44.7 H, RDW Coeff of Amanda 13.7, Plt Count 217, MPV 9.7, Immature Gran % (Auto) 0.300, Neut % (Auto) 79.6 H, Lymph % (Auto) 13.3 L, [place] % (Auto) 6.5, Eos % (Auto) 0.0, Baso % (Auto) 0.3, Absolute Neuts (auto) 6.1, Absolute Lymphs (auto) 1.02, Nucleated RBC % 0, Sodium 140, Potassium 4.0, Chloride 111 H, Carbon Dioxide 18.9 L, Anion Gap 10, BUN 12, Creatinine 0.63 L, Estim Creat Clear Calc 65.95, Est GFR (MDRD) Non-Af 98, BUN/Creatinine Ratio 19.7, Glucose 116 H, Calcium 8.5, Total Bilirubin 0.33, AST 112 H, ALT 329 H, Alkaline Phosphatase 92, Total Protein 6.1, Albumin 3.6, Globulin 2.5, Albumin/Globulin Ratio 1.4 Radiography Diagnostic Testing: Radiology Impression Cholangiogram 03/16/25 11:08 IMPRESSION: Unremarkable intraoperative cholangiogram. Reading Location: [facility] Physical Exam GI GI Narrative: Abdomen- soft, generalized tenderness. Incisions c/d/i. No erythema or infection noted. No bleeding noted at the incision sites Assessment & Plan Assessment/Plan (1) Cholelithiasis: (2) Abdominal pain: (3) Elevated liver enzymes: PLAN: Plan I am following this patient in conjunction with Dr. Cabrera Labs reviewed. Liver enzymes continue to trend down Appreciate GI input and recommendations Post-operative urinary issues have resolved Discharge instructions were reviewed with the patient Patient to call our office to schedule a 2 week follow-up Patient is ready for discharge Charges/Coding Visit Charges Inpatient E&M: 38973 Subs Hosp L1 (post-op)
[2025-03-17 09:21] VITALS: BP 99/63; PULSE 67; RESP 18; TEMP 36.2; O2SAT 97
[2025-03-17 15:08] LABS: Albumin 3.4 g/dL (2.9-4.4); Alpha-1-Globulins 0.2 g/dL (0.0-0.4); Alpha-2-Globulins 0.7 g/dL (0.4-1.0); Anti-Smooth Muscle ABS 5 Units (0-19); Immunoglobulin A 112 mg/dL (87-352); Immunoglobulin G 967 mg/dL (586-1602); Immunoglobulin M 96 mg/dL (26-217); PROEL- TOTAL PROTEIN 6.3 g/dL (6.0-8.5)
--- NOTE | 2025-03-17 16:57 | PCM.PN.BLA ---
Progress Note Patient tolerated surgery yesterday. She has been afebrile and tolerating a diet. She does have some abdominal pain but is improving. Physical Exam Const oriented x3 and no apparent distress Resp normal respiratory effort GI normal to inspection, nondistended, normoactive bowel sounds Assessment & Plan Assessment/Plan (1) Elevated liver enzymes: (2) Cholelithiasis: (3) Abdominal pain: PLAN: 64-year-old who comes in with right upper quadrant pain in the setting of known cholelithiasis and discovered to have increased LFTs. Differential diagnosis does include local inflammation secondary to gallbladder adjacent to the liver without any obstructive physiology in the hepatobiliary system. Micro choledocholithiasis is also differential diagnosis. She does not have any history consistent with any autoimmune hepatitis, primary sclerosing cholangitis, probable cirrhosis or IgG associated liver disease. I also do not suspect that this is a viral hepatitis. Patient will undergo cholecystectomy tomorrow with intraoperative cholangiogram. I will continue to follow. Thank you for allow me to be involved in the care of this patient. PLAN: Plan 03/16/2025-patient's liver enzymes continue to go down and are consistent with a past gallstone. Agree with the patient did not need a liver biopsy at this time. If labs continue to improve then she will not need autoimmune workup. 03/17/2025-patient liver enzymes continue to go down. She is to be discharged today by surgical services. Awaiting autoimmune labs. She can follow-up as an outpatient. Visit Charges Inpatient E&M: 04613 Subs Hosp L3
== END 2025-03-17 09:58 | disposition home or self-care (01) | DRG 419 ==
LOC: ED 13:04 → MS3 13:29
PROVIDERS: Internal Medicine Gastroenterology; Physician Assistant; Admitting Provider Surgery; Emergency Provider Emergency Medicine; PCP Internal Medicine; Referring Provider Surgery; Visit Provider Surgery
PROC: 0FT44ZZ Resection of Gallbladder, Percutaneous Endoscopic Approach (ICD-10-PCS; CPT 47610; principal; 2025-03-16 10:50)
DX: K80.62 Calculus of gallbladder and bile duct with acute cholecystitis without obstruction (principal); K57.30 Diverticulosis of large intestine without perforation or abscess without bleeding; K76.0 Fatty (change of) liver, not elsewhere classified; K82.8 Other specified diseases of gallbladder; Z90.710 Acquired absence of both cervix and uterus
CPT/HCPCS: 36415; 74177; 74300; 76000; 76705; 78226; 80048; 80053; 80074; 80076; 81001; 82784; 83516; 83690; 84165; 85025; 85652; 86140; 86334; 88304; 99283; A9537; Q9967; A4216; J2405